=== PATIENT | male | born 1975 | race Caucasian/White ===

== ENCOUNTER 2021-12-20 10:53 | Inpatient (IN) | payer BC, OTHER ==
[2021-12-20 11:41] LABS: Basophils # (A) 0.1 k/uL (0-0.2); Basophils % (A) 1 %; Eosinophils # (A) 0.2 k/uL (0-0.7); Eosinophils % (A) 2 %; HCT 49.3 % (39.0-53.0); HGB 16.3 gm/dL (13.0-17.5); Lymphocytes # (A) 1.1 k/uL (1.0-4.8); Lymphocytes % (A) 10 %; MCH 29.8 pg (25.0-35.0); MCHC 33.1 g/dL (31.0-37.0); Mean Platelet Volume 8.3; Monocytes # (A) 0.8 k/uL (0-1.0); Monocytes % (A) 7 %; Neutrophils # (A) 8.8 k/uL (1.3-7.7); Neutrophils % (A) 79 %; Platelet Count 246 k/uL (150-450); RBC 5.48 m/uL (4.30-5.90); RDW 14.2 % (11.5-15.5)
--- NOTE | 2021-12-20 11:50 | XR ---
EXAMINATION TYPE: XR chest 2V DATE OF EXAM: 12/20/2021 COMPARISON: NONE HISTORY: Chest pain TECHNIQUE: Frontal and lateral views of the chest are obtained. FINDINGS: Mild increased density right medial lung base could reflect developing infiltrate or atelectasis. Cor relate clinically. No evidence for pneumothorax. No pleural effusion. The cardiac silhouette size is within normal limits. The osseous structures are grossly intact. IMPRESSION: 1. Mild increased density right medial lung base could reflect developing infiltrate or atelectasis. Correlate clinically.
[2021-12-20 11:51] LABS: ALT 86 U/L (4-49); AST 150 U/L (17-59); African American GFR (CKD) >90 (>60 ml/min/1.73 sqM); Albumin 4.6 g/dL (3.5-5.0); Alkaline Phosphatase 102 U/L (38-126); Anion Gap 8 mmol/L; Blood Urea Nitrogen 11 mg/dL (9-20); Calcium 9.3 mg/dL (8.4-10.2); Carbon Dioxide 23 mmol/L (22-30); Chloride 105 mmol/L (98-107); Glucose 121 mg/dL (74-99); Non-African American GFR(CKD) >90 (>60 ml/min/1.73 sqM); Prothrombin Time 10.8 sec (9.0-12.0); Sodium 136 mmol/L (137-145); Total Bilirubin 1.3 mg/dL (0.2-1.3); Total Protein 8.2 g/dL (6.3-8.2)
[2021-12-20] MEDS ORDERED: ASPIRIN 81 MG PO STA (11:57)
--- NOTE | 2021-12-20 12:02 | ED ---
General Adult HPI - General Chief complaint: Chest Pain Stated complaint: Chest pain Time Seen by Provider: 12/20/21 11:08 Source: patient Mode of arrival: ambulatory Limitations: no limitations - History of Present Illness Initial comments: Dictation was produced using [employer] dictation software. please excuse any grammatical, word or spelling errors. Chief Complaint: 46 yo male presents to the emergency department for chest pressure History of Present Illness: Is a 46-year-old male presents to the emergency department for chest pressure. Patient has past medical history of diabetes, hypertension. He has extensive family history of heart attacks. Patient states this morning he started having substernal chest pressure that would have undulating waves of sharpness and pressure. Patient reports that sharpness has gone away now he just feels some substernal pressure. States it radiates to the left shoulder associated with some diaphoresis and shortness of breath. Patient has any dyspnea at the bedside. He states that he does have some mild symptoms. Just prior to coming to the emergency department he took one of his family members nitroglycerin which improved his symptoms. Patient reports that his extensive family history of heart attacks. The ROS documented in this emergency department record has been reviewed and confirmed by me. Those systems with pertinent positive or negative responses have been documented in the HPI. All other systems are other negative and/or noncontributory. PHYSICAL EXAM: General Impression: Alert and oriented x3, not in acute distress HEENT: Normocephalic atraumatic, extra-ocular movements intact, pupils equal and reactive to light bilaterally, mucous membranes moist. Cardiovascular: Heart regular rate and rhythm Chest: Able to complete full sentences, no retractions, no tachypnea Abdomen: abdomen soft, non-tender, non-distended, no organomegaly Musculoskeletal: Pulses present and equal in all extremities, no peripheral edema Motor: no focal deficits noted Neurological: CN II-XII grossly intact, no focal motor or sensory deficits noted Skin: Intact with no visualized rashes Psych: Normal affect and mood ED course: 46 well-appearing male presents emergency department for symptoms concerning for acute coronary syndrome. Vital signs upon arrival are within acceptable limits. EKG does not show any signs of ischemia or infarction. Lab evaluation obtained. CBC unremarkable. Coag panel is unremarkable. Metabolic panel is within acceptable limits. Patient is slight elevation in his renal markers with a secondary to alcohol intake. Troponin is elevated troponin 110. Patient had an episode of rib pain. Repeat EKG was performed that did not show any hemodynamic changes. Patient is otherwise relatively asymptomatic. Patient be admitted to [facility]. Case was discussed in detail with Dr. Meade who requests that echocardiogram be ordered. Started heparin. Clinical presentation consistent with non-ST segment elevation PR. Patient also given aspirin and Nitropaste. EKG interpretation: Ventricular rate anterior, sinus rhythm,. 96, QRS 114, QTc 425. No NH prolongation, no QTC prolongation, no ST or T-wave changes noted. Overall, this EKG is unremarkable - Related Data Home Medications Medication Instructions Recorded Confirmed lisinopriL [Zestril] 10 mg PO DAILY 12/20/21 12/20/21 Allergies Allergy/AdvReac Type Severity Reaction Status Date / Time bee venom protein (honey bee) Allergy Swelling Verified 12/20/21 12:44 Tetanus Vaccines and Toxoid Allergy Anaphylaxis Verified 12/20/21 12:44 Review of Systems ROS Statement: Those systems with pertinent positive or pertinent negative responses have been documented in the HPI. ROS Other: All systems not noted in ROS Statement are negative. Past Medical History Past Medical History: Diabetes Mellitus, Hypertension, Myocardial Infarction ([place]) Additional Past Medical History / Comment(s): TIA History of Any Multi-Drug Resistant Organisms: None Reported Past Surgical History: Appendectomy, Cholecystectomy Past Psychological History: Anxiety Smoking Status: Current every day smoker Past Alcohol Use History: Heavy Past Drug Use History: Marijuana General Exam Limitations: no limitations Course Vital Signs 12/20/21 12/20/21 12/20/21 11:00 11:57 13:10 Temperature 98.6 F 97.8 F Pulse Rate 100 78 95 Respiratory 16 15 20 Rate Blood Pressure 139/82 128/92 129/87 O2 Sat by Pulse 98 97 97 Oximetry Medical Decision Making - Lab Data Result diagrams: 12/20/21 11:34 12/20/21 12:12 Lab Results 12/20/21 12/20/21 12/20/21 Range/Units 11:34 11:34 11:34 WBC 11.0 H (3.8-10.6) k/uL RBC 5.48 (4.30-5.90) m/uL Hgb 16.3 (13.0-17.5) gm/dL Hct 49.3 (39.0-53.0) % MCV 90.0 (80.0-100.0) fL MCH 29.8 (25.0-35.0) pg MCHC 33.1 (31.0-37.0) g/dL RDW 14.2 (11.5-15.5) % Plt Count 246 (150-450) k/uL MPV 8.3 Neutrophils % 79 % Lymphocytes % 10 % Monocytes % 7 % Eosinophils % 2 % Basophils % 1 % Neutrophils # 8.8 H (1.3-7.7) k/uL Lymphocytes # 1.1 (1.0-4.8) k/uL Monocytes # 0.8 (0-1.0) k/uL Eosinophils # 0.2 (0-0.7) k/uL Basophils # 0.1 (0-0.2) k/uL PT 10.8 (9.0-12.0) sec INR 1.0 (<1.2) Sodium 136 L (137-145) mmol/L Potassium 6.0 H (3.5-5.1) mmol/L Chloride 105 (98-107) mmol/L Carbon Dioxide 23 (22-30) mmol/L Anion Gap 8 mmol/L BUN 11 (9-20) mg/dL Creatinine 0.63 L (0.66-1.25) mg/dL Est GFR (CKD-EPI)AfAm >90 (>60 ml/min/1.73 sqM) Est GFR (CKD-EPI)NonAf >90 (>60 ml/min/1.73 sqM) Glucose 121 H (74-99) mg/dL Calcium 9.3 (8.4-10.2) mg/dL Magnesium (1.6-2.3) mg/dL Total Bilirubin 1.3 (0.2-1.3) mg/dL AST 150 H (17-59) U/L ALT 86 H (4-49) U/L Alkaline Phosphatase 102 (38-126) U/L Troponin I (0.000-0.034) ng/mL Total Protein 8.2 (6.3-8.2) g/dL Albumin 4.6 (3.5-5.0) g/dL 12/20/21 12/20/21 Range/Units 11:34 12:12 WBC (3.8-10.6) k/uL RBC (4.30-5.90) m/uL Hgb (13.0-17.5) gm/dL Hct (39.0-53.0) % MCV (80.0-100.0) fL MCH (25.0-35.0) pg MCHC (31.0-37.0) g/dL RDW (11.5-15.5) % Plt Count (150-450) k/uL MPV Neutrophils % % Lymphocytes % % Monocytes % % Eosinophils % % Basophils % % Neutrophils # (1.3-7.7) k/uL Lymphocytes # (1.0-4.8) k/uL Monocytes # (0-1.0) k/uL Eosinophils # (0-0.7) k/uL Basophils # (0-0.2) k/uL PT (9.0-12.0) sec INR (<1.2) Sodium 138 (137-145) mmol/L Potassium 4.5 (3.5-5.1) mmol/L Chloride 105 (98-107) mmol/L Carbon Dioxide 25 (22-30) mmol/L Anion Gap 8 mmol/L BUN 11 (9-20) mg/dL Creatinine 0.66 (0.66-1.25) mg/dL Est GFR (CKD-EPI)AfAm >90 (>60 ml/min/1.73 sqM) Est GFR (CKD-EPI)NonAf >90 (>60 ml/min/1.73 sqM) Glucose 122 H (74-99) mg/dL Calcium 9.5 (8.4-10.2) mg/dL Magnesium 2.0 (1.6-2.3) mg/dL Total Bilirubin 0.5 (0.2-1.3) mg/dL AST 183 H (17-59) U/L ALT 88 H (4-49) U/L Alkaline Phosphatase 103 (38-126) U/L Troponin I 3.110 H* (0.000-0.034) ng/mL Total Protein 7.4 (6.3-8.2) g/dL Albumin 4.3 (3.5-5.0) g/dL Disposition Clinical Impression: NSTEMI (non-ST elevated myocardial infarction) Disposition: ADMITTED IP TO THIS [facility] Condition: Serious Decision Time: 13:31
[2021-12-20] MEDS ORDERED: HEPARIN SODIUM 1,000 UN/ML (10ML VL) IV ONE (12:10)
[2021-12-20] MEDS ORDERED: NITROGLYCERIN SL TABS 0.4 MG TAB SUBLINGUAL STA (12:11)
[2021-12-20] MEDS ORDERED: HEPARIN SOD,PORK IN 0.45% NACL 25,000 UNIT in 0.45% NACL 1 250ML.BAG IV SCH (12:15)
[2021-12-20 12:32] LABS: ALT 88 U/L (4-49); AST 183 U/L (17-59); African American GFR (CKD) >90 (>60 ml/min/1.73 sqM); Albumin 4.3 g/dL (3.5-5.0); Alkaline Phosphatase 103 U/L (38-126); Anion Gap 8 mmol/L; Blood Urea Nitrogen 11 mg/dL (9-20); Calcium 9.5 mg/dL (8.4-10.2); Carbon Dioxide 25 mmol/L (22-30); Chloride 105 mmol/L (98-107); Glucose 122 mg/dL (74-99); Non-African American GFR(CKD) >90 (>60 ml/min/1.73 sqM); Potassium 4.5 mmol/L (3.5-5.1); Sodium 138 mmol/L (137-145); Total Bilirubin 0.5 mg/dL (0.2-1.3); Total Protein 7.4 g/dL (6.3-8.2)
[2021-12-20] MEDS ORDERED: NITROGLYCERIN SL TABS 0.4 MG TAB SUBLINGUAL PRN (12:59)
[2021-12-20] MEDS ORDERED: NITROGLYCERIN 0.2MG/HR PATCH TRANSDERM STA (13:28)
[2021-12-20] MEDS ORDERED: NALOXONE 0.4 MG/ML 1 ML VIAL IV PRN (14:42)
--- NOTE | 2021-12-20 14:46 | P.HPIM ---
History of Present Illness H&P Date: 12/20/21 Chief Complaint: chest pressure 46-year-old male with hx of HTN not compliant with meds who presents to the emergency department for chest pressure. He drank alot last night and smoked marijuana, woke up this am felt fine initially but later he started having sever e chest pressure radiating to the back and the left shoulder associated with some diaphoresis and shortness of breath, nausea and vomiting. Just prior to coming to the emergency department he took one of his family members nitroglycerin which improved his symptoms. Patient reports that his extensive family history of heart attacks. Mother had her first [place] in her late 30s and father had CAD as well but he was cocaine user. Patient states that he lost 40 pounds over the past 4 months, and that he has been trying to live a healthy lifestyle. However he smokes 2 PPD, daily marijuana and drinks on weekends regularly. In the ER his vitals ok, trops was up to 3. CXR mild medial lung base density that could be atelectasis or infiltrates.. He was admitted to medicine with cardiology on consult. Review of Systems Complete review of system was performed, pertinent positives per HPI otherwise negative. Past Medical History Past Medical History: Diabetes Mellitus, Hypertension, Myocardial Infarction ([place]) Additional Past Medical History / Comment(s): TIA Last Myocardial Infarction Date:: n/a History of Any Multi-Drug Resistant Organisms: None Reported Past Surgical History: Appendectomy, Cholecystectomy Past Psychological History: Anxiety Smoking Status: Current every day smoker Past Alcohol Use History: Heavy Past Drug Use History: Marijuana Medications and Allergies Home Medications Medication Instructions Recorded Confirmed Type lisinopriL [Zestril] 10 mg PO DAILY 12/20/21 12/20/21 History Allergies Allergy/AdvReac Type Severity Reaction Status Date / Time bee venom protein (honey bee) Allergy Swelling Verified 12/20/21 12:44 Tetanus Vaccines and Toxoid Allergy Anaphylaxis Verified 12/20/21 12:44 Physical Exam Vitals: Vital Signs Temp Pulse Pulse Resp BP BP Pulse Ox 12/20/21 13:56 98.2 F 90 18 126/85 98 12/20/21 13:14 97.8 F 90 20 130/87 12/20/21 13:10 97.8 F 95 20 129/87 97 12/20/21 11:57 78 15 128/92 97 12/20/21 11:00 98.6 F 100 16 139/82 98 Intake and Output 12/19/21 12/20/21 12/20/21 22:59 06:59 14:59 Other: Weight 126.099 kg Constitutional: No acute distress, conversant, pleasant Eyes:Anicteric sclerae, moist conjunctiva, no lid-lag, PERRLA, ENMT: Oropharynx clear, no erythema, exudates Neck: Supple, FROM, no masses, or JVD, No carotid bruits, No thyromegaly Lungs: Clear to auscultation, Clear to percussion, Normal respiratory effort, no accessory muscle use Cardiovascular: Heart regular in rate and rhythm, No murmurs, gallops, or rubs, No peripheral edema Abdominal: Soft, Nontender, no guarding, rebound or rigidity, Normoactive bowel sounds, No hepatomegaly, No splenomegaly, No palpable mass Skin: Normal temperature, tone, texture, turgor, no induration, No subcutaneous nodules, No rash, lesions, No ulcers Extremities: No digital cyanosis, No clubbing, Pedal pulses intact and symmetrical, Radial pulses intact and symmetrical, No calf tenderness Psychiatric: Alert and oriented to person, place and time, appropriate affect, intact judgement Neuro: Muscles Strength 5/5 in all 4 extremities, Sensation to light touch grossly present throughout, Cranial nerves II-XII grossly intact, no focal sensory deficits Results CBC & Chem 7: 12/20/21 11:34 12/20/21 12:12 Labs: Abnormal Lab Results - Last 24 Hours (Table) 12/20/21 12/20/21 12/20/21 Range/Units 11:34 11:34 11:34 WBC 11.0 H (3.8-10.6) k/uL Neutrophils # 8.8 H (1.3-7.7) k/uL Sodium 136 L (137-145) mmol/L Potassium 6.0 H (3.5-5.1) mmol/L Creatinine 0.63 L (0.66-1.25) mg/dL Glucose 121 H (74-99) mg/dL AST 150 H (17-59) U/L ALT 86 H (4-49) U/L Troponin I 3.110 H* (0.000-0.034) ng/mL 06/25/22 Range/Units 12:12 WBC (3.8-10.6) k/uL Neutrophils # (1.3-7.7) k/uL Sodium (137-145) mmol/L Potassium (3.5-5.1) mmol/L Creatinine (0.66-1.25) mg/dL Glucose 122 H (74-99) mg/dL AST 183 H (17-59) U/L ALT 88 H (4-49) U/L Troponin I (0.000-0.034) ng/mL Assessment and Plan Plan: NSTEMI Heparin gtt. Aspirin 325mg given Start asa 81mg daily, metoprolol, statin Consult cardio Tele Check lipid panel Hyperglycemia Check a1c Smoking, etoh and marijuana abuse He was told to quit Nicotine patch Obesity Outpatient weight loss program DVT prophylaxis On heparin Admit to inpatient expected length of stay more than 2 midnights.
--- NOTE | 2021-12-20 15:39 | CA ---
Transthoracic Echo Report Name: Gonzalez Ramachandran Age: 46 Gender: M : 1975 Exam Date: 12/20/2021 13:20 Exam Location: [place] [facility] Ht (in): 71 Wt (lb): 278 Ordering Physician: Eben Morrissey DO Attending/Referring Phys: [employer]ooter Pat Murphy RDCS Procedure CPT: Indications: nstemi Cardiac Hx: Fm HX, HTN Technical Quality: Good Contrast 1: Total Dose (mL): Contrast 2: Total Dose (mL): MEASUREMENTS (Male / Female) Normal Values 2D ECHO LV Diastolic Diameter PLAX 3.8 cm 4.2 - 5.9 / 3.9 - 5.3 cm LV Systolic Diameter PLAX 2.9 cm IVS Diastolic Thickness 1.5 cm 0.6 - 1.0 / 0.6 - 0.9 cm LVPW Diastolic Thickness 1.7 cm 0.6 - 1.0 / 0.6 - 0.9 cm LV Relative Wall Thickness 0.8 RV Internal Dim ED PLAX 2.4 cm M-MODE Aortic Root Diameter MM 3.4 cm LA Systolic Diameter MM 3.3 cm LA Ao Ratio MM 1.0 MV E Point Septal Separation 0.9 cm AV Cusp Separation MM 2.0 cm DOPPLER AV Peak Velocity 110.3 cm/s AV Peak Gradient 4.9 mmHg MV Area PHT 5.4 cm??? MR Peak Velocity 178.4 cm/s MR Peak Gradient 12.7 mmHg Mitral E Point Velocity 90.2 cm/s Mitral A Point Velocity 64.3 cm/s Mitral E to A Ratio 1.4 MV Deceleration Time 140.0 ms TR Peak Velocity 87.6 cm/s TR Peak Gradient 3.1 mmHg Right Ventricular Systolic Press 7.9 mmHg FINDINGS Left Ventricle Moderate concentric LVH. Left ventricular ejection fraction is estimated at 50- 55 %. Left ventricular cavity size normal. Right Ventricle The right ventricle is normal in size and function. Right Atrium The right atrium is normal in size. Left Atrium The left atrium is normal in size. Mitral Valve Structurally normal mitral valve without significant stenosis or prolapse. There is trace mitral regurgitation. Aortic Valve Structurally normal aortic valve without significant sclerosis or stenosis. There is no aortic regurgitation. Tricuspid Valve Structurally normal tricuspid valve without significant stenosis. Pulmonary artery systolic pressure is normal. Trace tricuspid regurgitation. Pulmonic Valve Structurally normal pulmonic valve without significant stenosis. There is no pulmonic regurgitation. Pericardium Normal pericardium without effusion. Aorta Normal aortic root dimension. CONCLUSIONS #1. Moderate concentric left ventricular hypertrophy. #2. Preserved LV function. #3. Trace mitral and tricuspid regurgitation Previewed by: Dr. Amy Meade MD (Electronically Signed) Final Date: 20 December 2021 15:38
[2021-12-20] MEDS: ATORVASTATIN 40 MG TAB PO SCH (16:17)
[2021-12-20] MEDS: METOPROLOL TARTRATE 25 MG TAB PO SCH ×3 (16:17→23:56)
[2021-12-20] MEDS: NICOTINE 21MG/24HR PATCH TRANSDERM SCH (19:30)
[2021-12-20 19:33] VITALS: RESP 12
[2021-12-20] MEDS: HEPARIN SODIUM 1,000 UN/ML (10ML VL) IV PRN (21:14)
[2021-12-21] MEDS: HEPARIN SODIUM 1,000 UN/ML (10ML VL) IV PRN (01:41)
[2021-12-21 08:01] LABS: Basophils # (A) 0.1 k/uL (0-0.2); Basophils % (A) 1 %; Eosinophils # (A) 0.3 k/uL (0-0.7); Eosinophils % (A) 2 %; Lymphocytes # (A) 2.5 k/uL (1.0-4.8); Lymphocytes % (A) 18 %; MCH 29.6 pg (25.0-35.0); MCHC 32.6 g/dL (31.0-37.0); MCV 90.7 fL (80.0-100.0); Mean Platelet Volume 8.4; Monocytes % (A) 7 %; Neutrophils # (A) 10.3 k/uL (1.3-7.7); Neutrophils % (A) 72 %; Platelet Count 241 k/uL (150-450); RBC 5.07 m/uL (4.30-5.90); RDW 14.3 % (11.5-15.5); WBC 14.2 k/uL (3.8-10.6)
[2021-12-21 08:12] LABS: ALT 113 U/L (4-49); AST 292 U/L (17-59); African American GFR (CKD) >90 (>60 ml/min/1.73 sqM); Albumin 3.9 g/dL (3.5-5.0); Alkaline Phosphatase 103 U/L (38-126); Anion Gap 7 mmol/L; Blood Urea Nitrogen 11 mg/dL (9-20); Calcium 8.8 mg/dL (8.4-10.2); Carbon Dioxide 24 mmol/L (22-30); Chloride 105 mmol/L (98-107); Glucose 118 mg/dL (74-99); Magnesium 1.9 mg/dL (1.6-2.3); Non-African American GFR(CKD) >90 (>60 ml/min/1.73 sqM); Phosphorus 3.3 mg/dL (2.5-4.5); Potassium 4.2 mmol/L (3.5-5.1); Sodium 136 mmol/L (137-145); Total Protein 6.8 g/dL (6.3-8.2)
[2021-12-21] MEDS: ATORVASTATIN 40 MG TAB PO SCH (08:13)
[2021-12-21] MEDS: NICOTINE 21MG/24HR PATCH TRANSDERM SCH (08:13)
[2021-12-21] MEDS: METOPROLOL TARTRATE 25 MG TAB PO SCH (08:13)
--- NOTE | 2021-12-21 08:37 | P.CRDCN ---
History of Present Illness Consult date: 12/21/21 History of present illness: This is a 46-year-old gentleman with history of hypertension and borderline diabetes and strong family history of ischemic heart disease was drinking the night before admission. Around 3:00 in the morning patient started having some tight feeling around the throat and not feeling well. Patient threw up and felt better and was able to go to sleep, woke up in the morning around 8:00 yesterday feeling good, but soon after he started having some nausea, sweating and discomfort in the throat area and also her abdomen. Patient went to see his mom around 9:00 and apparently his blood pressure was high in the range of 180 systolic. Patient's was treated with sublingual nitroglycerin by his mother and apparently his blood pressure came down to 140/80 and patient felt much better. However, patient came to the emergency room for further evaluation. He claims that he smokes 2 packs per day and uses marijuana daily and drinks on weekends. His EKG did not reveal any acute changes of ischemia and repeat EKG also did not show any changes. Echocardiogram did not show any different wall motion abnormalities. However, troponin went up to 90+ from about 3+. Patient is advised to have cardiac cath placed for definitive diagnosis. Patient was explained the risks and benefits of the procedure which she fully understood and accepted Review of Systems As per the chart. Patient is having intermittent chest discomfort. Patient was also having some shortness of breath. No headache or visual disturbances. No diarrhea. No dysuria Past Medical History Past Medical History: Diabetes Mellitus, Hypertension, Myocardial Infarction ([place]) Additional Past Medical History / Comment(s): TIA Last Myocardial Infarction Date:: n/a History of Any Multi-Drug Resistant Organisms: None Reported Past Surgical History: Appendectomy, Cholecystectomy Past Psychological History: Anxiety Smoking Status: Current every day smoker Past Alcohol Use History: Heavy Past Drug Use History: Marijuana Medications and Allergies Home Medications Medication Instructions Recorded Confirmed Type lisinopriL [Zestril] 10 mg PO DAILY 12/20/21 12/20/21 History Allergies Allergy/AdvReac Type Severity Reaction Status Date / Time bee venom protein (honey bee) Allergy Swelling Verified 12/20/21 12:44 Tetanus Vaccines and Toxoid Allergy Anaphylaxis Verified 12/20/21 12:44 Physical Exam Vitals: Vital Signs Temp Pulse Pulse Resp BP BP Pulse Ox 12/21/21 08:00 97.5 F L 77 12 122/85 96 12/21/21 04:00 97.9 F 66 12 110/71 96 12/20/21 23:53 98.1 F 76 12 145/79 96 12/20/21 19:33 97.7 F 76 12 137/82 98 12/20/21 15:50 97.5 F L 88 20 129/84 12/20/21 14:00 90 12/20/21 13:56 98.2 F 90 18 126/85 98 12/20/21 13:14 97.8 F 90 20 130/87 12/20/21 13:10 97.8 F 95 20 129/87 97 12/20/21 11:57 78 15 128/92 97 12/20/21 11:00 98.6 F 100 16 139/82 98 Intake and Output 12/20/21 12/21/21 12/21/21 22:59 06:59 14:59 Intake Total 82.167 59.956 Balance 82.167 59.956 Intake: Intake, IV Titration 82.167 59.956 Amount Heparin Sod,Pork in 0.45% 82.167 59.956 NaCl 25,000 unit In 0.45 % NaCl 1 250ml.bag @ 7.93 UNITS/KG/HR 10 mls/hr IV .Q24H [facility] Rx#:[id number] Other: Voiding Method Toilet Toilet Toilet Urinal Urinal Urinal # Voids 2 3 GENERAL EXAM: Patient is alert and oriented and doesn't appear to be in any acute distress HEENT: Normocephalic. Normal reaction of pupils, equal size, normal range of extraocular motion. No erythema or exudates in the throat. NECK: No masses, no nuchal rigidity. CHEST: No chest wall deformity. LUNGS: Equal air entry with no crackles or wheeze. HEART: S1 and S2 normal with no audible mumurs or gallops. Regular rhythm, femorals equal on both sides.. ABDOMEN: No hepatosplenomegaly, normal bowel sounds, no guarding or rigidity. SKIN: No rashes CENTRAL NERVOUS SYSTEM: No focal deficits. EXTREMITIES: No cyanosis, clubbing or edema. Results 12/21/21 07:18 12/21/21 07:18 Cardiac Enzymes 12/20/21 12/20/2122 Range/Units 11:34 11:34 12:12 AST 150 H 183 H (17-59) U/L Troponin I 3.110 H* (0.000-0.034) ng/mL 12/20/21 12/20/21 12/21/21 Range/Units 14:48 18:47 07:18 AST 292 H (17-59) U/L Troponin I 49.000 H* 98.600 H* (0.000-0.034) ng/mL Coagulation 12/20/21 12/20/21 12/21/21 Range/Units 11:34 18:47 00:16 PT 10.8 (9.0-12.0) sec APTT 28.7 38.6 H (22.0-30.0) sec 12/21/21 Range/Units 07:18 PT (9.0-12.0) sec APTT 40.0 H (22.0-30.0) sec CBC 12/20/21 12/21/21 Range/Units 11:34 07:18 WBC 11.0 H 14.2 H (3.8-10.6) k/uL RBC 5.48 5.07 (4.30-5.90) m/uL Hgb 16.3 15.0 (13.0-17.5) gm/dL Hct 49.3 46.0 (39.0-53.0) % Plt Count 246 241 (150-450) k/uL Comprehensive Metabolic Panel 12/20/21 12/20/21 12/21/21 Range/Units 11:34 12:12 07:18 Sodium 136 L 138 136 L (137-145) mmol/L Potassium 6.0 H 4.5 4.2 (3.5-5.1) mmol/L Chloride 105 105 105 (98-107) mmol/L Carbon Dioxide 23 25 24 (22-30) mmol/L BUN 11 11 11 (9-20) mg/dL Creatinine 0.63 L 0.66 0.62 L (0.66-1.25) mg/dL Glucose 121 H 122 H 118 H (74-99) mg/dL Calcium 9.3 9.5 8.8 (8.4-10.2) mg/dL AST 150 H 183 H 292 H (17-59) U/L ALT 86 H 88 H 113 H (4-49) U/L Alkaline Phosphatase 102 103 103 (38-126) U/L Total Protein 8.2 7.4 6.8 (6.3-8.2) g/dL Albumin 4.6 4.3 3.9 (3.5-5.0) g/dL Current Medications Generic Name Dose Route Start Last Admin Trade Name Freq PRN Reason Stop Dose Admin Aspirin 325 mg 12/21/21 09:00 12/21/21 08:13 Aspirin 325 Mg Tab PO 325 mg DAILY [facility]UD[facility] Administration Atorvastatin Calcium 40 mg 12/20/21 14:45 12/21/21 08:13 Atorvastatin 40 Mg Tab PO 40 mg DAILY KLAUDIA Administration Heparin Sodium (Porcine) 0 unit 12/20/21 12:10 12/21/21 01:41 Heparin Sodium 1,000 Un/Ml (10ml Vl) IV 3,150 unit PER PROTOCOL PRN Administration Low PTT Protocol Heparin Sodium/Sodium Chloride 250 mls @ 10 mls/hr 12/20/21 12:15 12/21/21 01:40 25,000 unit/ Sodium Chloride IV 12.9 units/kg/hr .Q24H KLAUDIA 16.267 mls/hr Titration Protocol 7.93 UNITS/KG/HR Metoprolol Tartrate 25 mg 12/20/21 15:01 12/21/21 08:13 Metoprolol Tartrate 25 Mg Tab PO 25 mg BID KLAUDIA Administration Naloxone HCl 0.2 mg 12/20/21 14:42 Naloxone 0.4 Mg/Ml 1 Ml Vial IV Q2M PRN Opioid Reversal Nicotine 1 patch 12/20/21 19:23 12/21/21 08:13 Nicotine 21mg/24hr Patch TRANSDERM 1 patch DAILY KLAUDIA Administration Nitroglycerin 0.4 mg 12/20/21 12:59 Nitroglycerin Sl Tabs 0.4 Mg Tab SUBLINGUAL Q5M PRN Chest Pain Intake and Output 12/20/21 12/21/21 12/21/21 22:59 06:59 14:59 Intake Total 82.167 59.956 Balance 82.167 59.956 Intake: Intake, IV Titration 82.167 59.956 Amount Heparin Sod,Pork in 0.45% 82.167 59.956 NaCl 25,000 unit In 0.45 % NaCl 1 250ml.bag @ 7.93 UNITS/KG/HR 10 mls/hr IV .Q24H [facility] Rx#:[id number] Other: Voiding Method Toilet Toilet Toilet Urinal Urinal Urinal # Voids 2 3 12/21/21 07:18 12/21/21 07:18 EKG Interpretations (text) Sinus rhythm without any acute changes Assessment and Plan (1) NSTEMI (non-ST elevated myocardial infarction) Current Visit: Yes Status: Acute Code(s): I21.4 - NON-ST ELEVATION (NSTEMI) MYOCARDIAL INFARCTION SNOMED Code(s): 15790141 (2) Essential hypertension Current Visit: Yes Status: Acute Code(s): I10 - ESSENTIAL (PRIMARY) HYPERTENSION SNOMED Code(s): 78225483 (3) Borderline diabetes Current Visit: Yes Status: Acute Code(s): R73.03 - PREDIABETES SNOMED Code(s): 572449867 (4) Hypercholesterolemia Current Visit: Yes Status: Acute Code(s): E78.00 - PURE HYPERCHOLESTEROLEMIA, UNSPECIFIED SNOMED Code(s): 90711105 (5) Alcohol use Current Visit: Yes Status: Acute Code(s): Z72.89 - OTHER PROBLEMS RELATED TO LIFESTYLE SNOMED Code(s): 629430 (6) Marijuana use Current Visit: Yes Status: Acute Code(s): F12.90 - CANNABIS USE, UNSPECIFIED, UNCOMPLICATED SNOMED Code(s): 701359322 Plan: We'll continue patient on aspirin, heparin, beta blockers and nitrates. Proceed with cardiac cath for definitive diagnosis. We'll also start lipid-lowering agent. Further recommendations depend upon the clinical course and findings on the cath
[2021-12-21] MEDS ORDERED: SODIUM CHLORIDE 0.9% 1,000 ML IV ONE (08:45)
[2021-12-21] MEDS ORDERED: VERAPAMIL 2.5 MG/ML 2 ML AMP ONE (08:57)
[2021-12-21] MEDS ORDERED: ASPIRIN 325 MG TAB PO SCH (09:00)
[2021-12-21] MEDS ORDERED: NICOTINE 21MG/24HR PATCH TRANSDERM SCH (09:00)
[2021-12-21] MEDS ORDERED: LIDOCAINE 1% INJ 10MG/ML (5 ML VIAL-PF) SQ ONE (09:10)
[2021-12-21] MEDS ORDERED: MIDAZOLAM 2 MG/2 ML VIAL IV ONE (09:11)
[2021-12-21] MEDS ORDERED: VERAPAMIL SYRINGE (5 MG/10 ML) INTRAARTER ONE (09:11)
[2021-12-21] MEDS ORDERED: HYDROmorphone 1 MG/ML 1 ML SYRINGE ONE (09:12)
[2021-12-21] MEDS ORDERED: HYDROmorphone 1 MG/ML 1 ML SYRINGE IVP ONE (09:14)
[2021-12-21] MEDS ORDERED: HEPARIN SODIUM 1,000 UN/ML (10ML VL) ONE (09:18)
[2021-12-21] MEDS: HEPARIN SODIUM 1,000 UN/ML (10ML VL) IV ONE ×2 (09:18→09:31)
[2021-12-21] MEDS ORDERED: TICAGRELOR 90 MG TAB ONE (09:40)
[2021-12-21] MEDS ORDERED: TICAGRELOR 90 MG TAB PO ONE (09:41)
[2021-12-21] MEDS ORDERED: IOPAMIDOL-370 125ML BTL INJ ONE ×2 (09:45)
[2021-12-21] MEDS ORDERED: MAG HYDROX/AL HYDROX/SIMETH 30 ML CUP PO PRN (10:09)
[2021-12-21] MEDS ORDERED: NITROGLYCERIN SL TABS 0.4 MG TAB SUBLINGUAL PRN (10:09)
[2021-12-21] MEDS ORDERED: ATROPINE SULFATE 0.1 MG/ML 10ML SYRINGE IV PRN (10:09)
[2021-12-21] MEDS ORDERED: ZOLPIDEM 5 MG TAB PO PRN (10:09)
[2021-12-21] MEDS ORDERED: RX INFO: IV CONTRAST WAS GIVEN 1 EACH MISC MISCELLANE PRN (10:09)
[2021-12-21] MEDS ORDERED: SODIUM CHLORIDE 0.9% 1,000 ML in EMPTY BAG 1 BAG IV SCH (10:15)
--- NOTE | 2021-12-21 10:20 | P.PCN ---
Date of Procedure: 12/21/21 Operative Findings: CARDIAC CATHETERIZATION AND PERCUTANEOUS CORONARY INTERVENTION PERFORMING PHYSICIAN: Tanner Foley MD, [facility] PROCEDURE PERFORMED: 1. Selective right and left coronary angiogram 2. Left heart catheterization 3. Successful stenting of third OM using 3.25 x 23 Xience RENUKA which with an excellent angiographic results 4. Successful stenting of the proximal LCx using 3.5 x 28 mm Xience RENUKA with an excellent angiographic results INDICATION: This is a 46-year-old gentleman with a borderline diabetes and hypertension and dyslipidemia and obesity and significant history of smoking cigarettes as well as marijuana and also alcohol use was admitted to the hospital with shortness of breath and he was ruled in for acute coronary event. The troponin was elevated. The EKG did not show any significant ST or T-wave abnormalities. Because his troponin was trending up heart catheterization was advised COMPLICATION: None APPROACH: Right radial art LEVEL OF SEDATION: Moderate with the sedation time off 38 minutes PROCEDURE DESCRIPTION: After obtaining an informed consent the patient was brought to the cardiac forestry laborer. The right radial artery was cannulated using puncture technique, the micronodular passed easily then I placed a 6-Rwandan sheath. I gave the patient 2 mg of verapamil intra-arterial and 5000 use of heparin intravenous. Selective right and left coronary angiogram performed using JR4 and JL 3.5 catheters. Left heart catheterization was performed using 6-Rwandan pigtail catheter. After that I did intervene on the LCx coronary artery. The procedure was completed without any complications SELECTIVE CORONARY ANGIOGRAM: The right coronary artery: Is a large caliber vessel and probably a dominant vessel. The RCA is chronically occluded a long segment extends from the proximal all the way to distal portion. It fills by ipsilateral collateral. I had heartburn seeing contralateral collateral. Left main: Is angiographically normal. Bifurcates into LCx and LAD The left circumflex: Is a large-caliber vessel is a codominant vessel. The proximal left circumflex has a long ulcerated and tubular lesion appeared to be in the range of 90-95%. The proximal all 6 gives rises into the first and second obtuse marginal branches both appear to have mild disease only. Then distally the LCx gives rises into a third OM branch which has another ulcerated lesion appeared to be in the range of 80-90%. The circumflex distally bifurcates into PDA and PLV branches both appear to have mild to moderate diffuse disease The left anterior descending artery: Is a large caliber vessel. Its angiographically normal mid gives rises into a large diagonal branch which appeared to be angiographically normal. Otherwise the LAD in the proximal and mid and distal portions appeared to be angiographically normal. HEMODYNAMICS: The LVEDP was 26 mmHg was no significant gradient across aortic valve PCI OF THE LCx: Anticoagulation was initiated using heparin with continuous ACT monitoring. At the beginning the patient was given a total of 5000 use of heparin IV and during the procedure he was given additional 5000 of heparin IV as well. ACT monitoring was performed. Subsequently I did engage the left main using an EBU 3.5 guide. I did to wire the left circumflex using a whisper wire. The wire was positioned in the third OM branch of the LCx. Predilatation was performed using 3.0 x 15 mm balloon were I dilated the third OM as well as proximal LCx. Subsequently for the third OM I deployed 3.25 x 23 mm stent where the stent was positioned under fluoroscopy guidance and deployed under its nominal pressure. For the proximal LCx I deployed 3.5 x 28 mm stent where the stent again was positioned under fluoroscopy guidance and deployed under its nominal pressure. I attempted advancing 3.75 x 20 mm NC balloon but the balloon would not cross from the left main to the left circumflex but with adjunctive use of guide liner I was able to get the balloon to the proximal LCx were the balloon was inflated under 22 aby for 20 seconds. Final angiogram showed good angiographic results and the procedure was completed without any complications CONCLUSION: #1 Acute non-ST elevation myocardial infarction #2 Critical disease involving the LCx/OM system #3 Normal left main coronary artery #4 Normal left anterior descending artery #5 Chronic total occlusion of the RCA as described above #6 Elevated left-sided filling pressure POSTPROCEDURE MANAGEMENT: #1 dual antiplatelet therapy using Aspirin as well as Ticagrelor for 12 month #2 aggressive cholesterol control #3 follow-up with the patient
[2021-12-21 10:44] VITALS: TEMP 98
[2021-12-21 11:45] VITALS: BP 111/71; PULSE 73
--- NOTE | 2021-12-21 14:38 | P.DS ---
Providers Date of admission: 12/20/21 12:59 Expected date of discharge: 12/21/21 Attending physician: Jacqueline Guevara MD Consults: 12/20/21 12:59 Consult Physician Urgent Consulting Provider: Amy Meade Consult Reason/Comments: nstemi Do you want consulting provider notified?: Already Contacted 12/21/21 10:09 Consult Physician Routine Consulting Provider: [facility] Consult Reason/Comments: Post Interventional Patient Do you want consulting provider notified?: Already Contacted Primary care physician: Stated None Hospital Course: 46-year-old male with hx of HTN not compliant with meds who presents to the emergency department for chest pressure. He drank alot last night and smoked marijuana, woke up this am felt fine initially but later he started having severe chest pressure radiating to the back and the left shoulder associated with some diaphoresis and shortness of breath, nausea and vomiting. Just prior to coming to the emergency department he took one of his family members nitroglycerin which improved his symptoms. Patient reports that his extensive family history of heart attacks. Mother had her first MD in her late 30s and father had CAD as well but he was cocaine user. Patient states that he lost 40 pounds over the past 4 months, and that he has been trying to live a healthy lifestyle. However he smokes 2 PPD, daily marijuana and drinks on weekends regularly. In the ER his vitals ok, trops was up to 3. CXR mild medial lung base density that could be atelectasis or infiltrates.. He was admitted to medicine with cardiology on consult. She was started on heparin drip, given aspirin. Patient was taken to the Application Penetration Tester by cardiology and was found to have obtuse marginal circumflex stenoses, had angioplasty with stent placements. He did well post cath. Echocardiogram showed moderate concentric LVH with preserved LV function. He was having some sob today, lung exam revealed some wheezing. He does have hx of asthma. He will be discharged with albuterol script. I emphasized on him quitting smoking, drinking and having to exercise. He verbalized understanding. Fasting blood sugars and A1c was elevated. His A1c was at 6.6. He likely has new-onset diabetes type 2. Exercise and weight loss were emphasized and patient, he will be started on jardiance for that as this medicine has been her cardiac profile compared to others. time for discharge 35 min Patient Condition at Discharge: Serious Plan - Discharge Summary Discharge Rx Participant: No New Discharge Prescriptions: New Aspirin 81 mg PO DAILY 90 Days #90 tab Ticagrelor [Brilinta] 90 mg PO BID 30 Days #60 tab Metoprolol Tartrate [Lopressor] 25 mg PO BID 30 Days #60 tab Nitroglycerin Sl Tabs [Nitrostat] 0.4 mg SUBLINGUAL Q5M PRN 30 Days #90 tab PRN Reason: Chest Pain Albuterol Sulfate [Proair Hfa] 1 - 2 puff INHALATION Q6HR PRN 30 Days #8.5 gm PRN Reason: Shortness Of Breath Empagliflozin [Jardiance] 10 mg PO DAILY 30 Days #30 tablet Nicotine 21Mg/24Hr Patch [Habitrol] 1 patch TRANSDERM DAILY 20 Days #20 patch Atorvastatin [Lipitor] 80 mg PO DAILY 30 Days #30 tab Discontinued lisinopriL [Zestril] 10 mg PO DAILY Discharge Medication List Albuterol Sulfate [Proair Hfa] 1 - 2 puff INHALATION Q6HR PRN 30 Days #8.5 gm 12/21/21 [Rx] Aspirin 81 mg PO DAILY 90 Days #90 tab 12/21/21 [Rx] Atorvastatin [Lipitor] 80 mg PO DAILY 30 Days #30 tab 12/21/21 [Rx] Empagliflozin [Jardiance] 10 mg PO DAILY 30 Days #30 tablet 12/21/21 [Rx] Metoprolol Tartrate [Lopressor] 25 mg PO BID 30 Days #60 tab 12/21/21 [Rx] Nicotine 21Mg/24Hr Patch [Habitrol] 1 patch TRANSDERM DAILY 20 Days #20 patch 12/21/21 [Rx] Nitroglycerin Sl Tabs [Nitrostat] 0.4 mg SUBLINGUAL Q5M PRN 30 Days #90 tab 12/21/21 [Rx] Ticagrelor [Brilinta] 90 mg PO BID 30 Days #60 tab 12/21/21 [Rx] Follow up Appointment(s)/Referral(s): None,Stated [Primary Care Provider] - 1-2 days
[2021-12-21 18:24] LABS: Chol/HDL Ratio 8.04 Ratio
[2021-12-21] MEDS ORDERED: TICAGRELOR 90 MG TAB PO SCH (21:00)
[2021-12-22] MEDS ORDERED: ATORVASTATIN 80 MG TAB PO SCH (09:00)
[2021-12-22] MEDS ORDERED: ASPIRIN 81 MG PO SCH (09:00)
== END 2021-12-21 16:31 | disposition home or self-care (01) | DRG 247 ==
LOC: EC 10:53 → 3SCARD 12:59
PROVIDERS: ADMIT Internal Medicine; ATTEND Internal Medicine
PROC: 027134Z Dilation of Coronary Artery, Two Arteries with Drug-eluting Intraluminal Device, Percutaneous Approach (ICD-10-PCS; principal; 2021-12-21 09:00)
PROC: 4A023N7 Measurement of Cardiac Sampling and Pressure, Left Heart, Percutaneous Approach (ICD-10-PCS; 2021-12-21 09:00)
PROC: B2111ZZ Fluoroscopy of Multiple Coronary Arteries using Low Osmolar Contrast (ICD-10-PCS; 2021-12-21 09:00)
DX: I21.4 Non-ST elevation (NSTEMI) myocardial infarction (principal); I25.10 Atherosclerotic heart disease of native coronary artery without angina pectoris; I25.2 Old myocardial infarction; J45.909 Unspecified asthma, uncomplicated; I10 Essential (primary) hypertension; F41.9 Anxiety disorder, unspecified; F17.210 Nicotine dependence, cigarettes, uncomplicated; E11.65 Type 2 diabetes mellitus with hyperglycemia; E66.9 Obesity, unspecified; F10.10 Alcohol abuse, uncomplicated; E78.00 Pure hypercholesterolemia, unspecified; E78.5 Hyperlipidemia, unspecified; I08.1 Rheumatic disorders of both mitral and tricuspid valves; F12.10 Cannabis abuse, uncomplicated; Z79.899 Other long term (current) drug therapy; Z82.49 Family history of ischemic heart disease and other diseases of the circulatory system; Z86.73 Personal history of transient ischemic attack (TIA), and cerebral infarction without residual deficits; Z91.14 Patient's other noncompliance with medication regimen; Z68.37 Body mass index [BMI] 37.0-37.9, adult; Z88.7 Allergy status to serum and vaccine; Z91.030 Bee allergy status; Z71.6 Tobacco abuse counseling; Z71.41 Alcohol abuse counseling and surveillance of alcoholic
CPT/HCPCS: 36415; 71046; 80053; 80061; 83036; 83721; 83735; 84100; 84484; 85025; 85610; 85730; 93005; 93306; 93458; 96374; 99285

== ENCOUNTER 2022-04-21 02:26 | Observation (INO) | payer BC, OTHER ==
[2022-04-21 02:57] LABS: Basophils % (A) 1 %; Eosinophils # (A) 0.2 k/uL (0-0.7); Eosinophils % (A) 2 %; HCT 43.7 % (39.0-53.0); HGB 14.9 gm/dL (13.0-17.5); Lymphocytes # (A) 1.9 k/uL (1.0-4.8); Lymphocytes % (A) 22 %; MCH 30.2 pg (25.0-35.0); MCHC 34.1 g/dL (31.0-37.0); MCV 88.5 fL (80.0-100.0); Mean Platelet Volume 8.7; Monocytes # (A) 0.5 k/uL (0-1.0); Monocytes % (A) 6 %; Neutrophils # (A) 5.8 k/uL (1.3-7.7); Neutrophils % (A) 68 %; Platelet Count 237 k/uL (150-450); RBC 4.94 m/uL (4.30-5.90); RDW 12.9 % (11.5-15.5); WBC 8.5 k/uL (3.8-10.6)
--- NOTE | 2022-04-21 03:00 | XR ---
EXAMINATION TYPE: XR chest 2V DATE OF EXAM: 04/21/2022 COMPARISON: 12/20/2021 HISTORY: Chest pain TECHNIQUE: FINDINGS: Heart and mediastinum are normal. Lungs are clear. Diaphragm is normal. Bony thorax appears intact. The pulmonary vascularity is normal. IMPRESSION: Normal chest. No change.
[2022-04-21 03:09] LABS: ALT 30 U/L (4-49); AST 26 U/L (17-59); African American GFR (CKD) >90 (>60 ml/min/1.73 sqM); Albumin 4.4 g/dL (3.5-5.0); Alkaline Phosphatase 86 U/L (38-126); Anion Gap 10 mmol/L; Blood Urea Nitrogen 15 mg/dL (9-20); Calcium 8.9 mg/dL (8.4-10.2); Carbon Dioxide 26 mmol/L (22-30); Chloride 102 mmol/L (98-107); Glucose 117 mg/dL (74-99); Lipase 43 U/L (23-300); Non-African American GFR(CKD) >90 (>60 ml/min/1.73 sqM); Potassium 3.8 mmol/L (3.5-5.1); Sodium 138 mmol/L (137-145)
[2022-04-21 03:17] LABS: INR 1.1 (<1.2); Partial Thromboplastin Time 27.8 sec (22.0-30.0); Prothrombin Time 11.8 sec (9.0-12.0)
--- NOTE | 2022-04-21 04:51 | ED ---
Chest Pain HPI - General Chief Complaint: Chest Pain Stated Complaint: Chest pain Time Seen by Provider: 04/21/22 04:00 Source: patient Mode of arrival: ambulatory Limitations: no limitations - History of Present Illness Initial Comments: 46-year-old male with past medical history of diabetes, hypertension, coronary disease who presents to emergency department with reported chest pain. Patient has history of coronary disease with 2 stents which were placed in November. Reports that he has had some chest pressure over the past several days however he was at work at 2 AM when he had sudden onset of diaphoresis, nausea and significant chest pressure. He does have nitro available. States that he took one and did alleviate some of the pressure. Reports that it did give him a headache. No fevers, chills or cough. Ripping or tearing sensation to his back. He has been taking his antiplatelet without any missed doses. No other alleviating, precipitating or modifying factors - Related Data Home Medications Medication Instructions Recorded Confirmed Albuterol Sulfate [Proair Hfa] 1 - 2 puff INHALATION RT-Q6H PRN 04/21/22 04/21/22 Aspirin EC [Ecotrin Low Dose] 81 mg PO HS 04/21/22 04/21/22 Clopidogrel [Plavix] 75 mg PO HS 04/21/22 04/21/22 Nitroglycerin Sl Tabs [Nitrostat] 0.4 mg SL Q5M PRN 04/21/22 04/21/22 Previous Rx's Medication Instructions Recorded Metoprolol Tartrate [Lopressor] 25 mg PO BID 30 Days #60 tab 12/21/21 Losartan [Cozaar] 50 mg PO DAILY 30 Days #30 tab 04/21/22 Rosuvastatin [Crestor] 20 mg PO DAILY #90 tablet 04/21/22 Allergies Allergy/AdvReac Type Severity Reaction Status Date / Time bee venom protein (honey bee) Allergy Swelling Verified 04/21/22 08:18 at site of sting Tetanus Vaccines and Toxoid Allergy Anaphylaxis Verified 04/21/22 08:18 Review of Systems ROS Statement: Those systems with pertinent positive or pertinent negative responses have been documented in the HPI. ROS Other: All systems not noted in ROS Statement are negative. EKG Findings - EKG Comments: EKG Findings:: EKG demonstrates sinus rhythm with a rate of 78. [place] interval 175. QRS 19. QTC of 432. No acute ST segment elevations or depressions concerning for ischemic changes Past Medical History Past Medical History: Diabetes Mellitus, Hypertension, Myocardial Infarction ([place]) Additional Past Medical History / Comment(s): TIA Last Myocardial Infarction Date:: n/a History of Any Multi-Drug Resistant Organisms: None Reported Past Surgical History: Appendectomy, Cholecystectomy Past Psychological History: Anxiety Smoking Status: Current every day smoker Past Alcohol Use History: None Reported, Heavy Past Drug Use History: Marijuana General Exam Limitations: no limitations General appearance: alert, in no apparent distress Head exam: Present: atraumatic, normocephalic, normal inspection Eye exam: Present: normal appearance, PERRL, EOMI. Absent: scleral icterus, conjunctival injection, periorbital swelling ENT exam: Present: normal exam, mucous membranes moist Neck exam: Present: normal inspection. Absent: tenderness, meningismus, lymphadenopathy Respiratory exam: Present: normal lung sounds bilaterally. Absent: respiratory distress, wheezes, rales, rhonchi, stridor Cardiovascular Exam: Present: regular rate, normal rhythm, normal heart sounds. Absent: systolic murmur, diastolic murmur, rubs, gallop, clicks GI/Abdominal exam: Present: soft, normal bowel sounds. Absent: distended, tenderness, guarding, rebound, rigid Extremities exam: Present: normal inspection, full ROM, normal capillary refill. Absent: tenderness, pedal edema, joint swelling, calf tenderness Back exam: Present: normal inspection Neurological exam: Present: alert, oriented X3, CN II-XII intact Psychiatric exam: Present: normal affect, normal mood Skin exam: Present: warm, dry, intact, normal color. 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 History and physical exam is performed. Patient placed on continuous pulse ox and cardiac monitoring. 12- lead EKG is obtained. Laboratory studies are conducted. Troponin is negative. Chest x-ray demonstrates no acute process. Due to patient's significant cardiac history he will be admitted for serial troponins. Patient was agreeable to this. Patient awaiting a bed on the floor in stable condition Disposition Clinical Impression: Chest pain Disposition: ADMITTED IP TO THIS HOSP Condition: Stable Is patient prescribed a controlled substance at d/c from ED?: No Time of Disposition: 04:50 Decision to Admit Reason: Admit from EC Decision Date: 04/21/22 Decision Time: 04:50
[2022-04-21] MEDS ORDERED: NALOXONE 0.4 MG/ML 1 ML VIAL IV PRN (04:52)
[2022-04-21] MEDS ORDERED: ASPIRIN 81 MG PO STA (04:59)
[2022-04-21] MEDS ORDERED: METOPROLOL TARTRATE 25 MG TAB PO SCH (09:00)
[2022-04-21] MEDS ORDERED: ATORVASTATIN 10 MG TAB PO SCH (09:00)
[2022-04-21 09:03] VITALS: RESP 18
[2022-04-21] MEDS ORDERED: LOSARTAN 50 MG TAB PO SCH (09:30)
--- NOTE | 2022-04-21 11:19 | P.CRDCN ---
History of Present Illness Consult date: 04/21/22 History of present illness: HISTORY OF PRESENT ILLNESS: This is a 46-year-old male with a past medical history significant for coronary artery disease with previous stenting, hypertension, hyperlipidemia, diabetes, nicotine dependence, and former alcohol use. Patient follows in the office with Dr. Foley. We have been asked to see the patient in consultation for chest pain. Patient examined at the bedside. Patient states yesterday he began having chest pain that radiated into his shoulder. He reports feeling diaphoretic. He also reports feeling short of breath. He states he took nitro which relieved his pain but then 15 minutes later the pressure started back again. The patient reports his blood pressure was significantly elevated with a systolic around 180. His blood pressure has improved and since that time he has not had any fu rther episodes of chest pain or pressure. The patient reports he is a current cigarette smoker and smokes about 15 cigarettes per day. * EKG reveals sinus mechanism with no signs of acute ischemia * Chest xray negative for acute process * Laboratory data: WBC 8.5. Hemoglobin 14.9. Platelet count 237. Sodium 138. Potassium 3.8. BUN 15. Creatinine 0.68. Troponin negative 2. * Current home cardiac medications include Crestor 5 mg daily, metoprolol titrate 25 mg twice a day, Plavix 75 mg at night, aspirin 81 mg at night * Most recent echocardiogram obtained in November 2021 revealed ejection fraction 50-55% * Cardiac catheterization history: November 2021 with stenting of the left circumflex. Patient was also found to have chronic total occlusion of the RCA. REVIEW OF SYSTEMS: At the time of my exam: CONSTITUTIONAL: Denies fever or chills. HEENT: Denies blurred vision, vision changes, or eye pain. Denies hemoptysis CARDIOVASCULAR: Denies chest pain. Denies orthopnea. Denies PND. Denies palpitations RESPIRATORY: Denies shortness of breath. GASTROINTESTINAL: Denies abdominal pain. Denies nausea or vomiting. HEMATOLOGIC: Denies bleeding disorders. GENITOURINARY: Denies any blood in urine. SKIN: Denies pruitis. Denies rash. PHYSICAL EXAM: VITAL SIGNS: Reviewed. GENERAL: Well-developed in no acute distress. HEENT: Head is normocephalic. Pupils are equal, round. Sclerae anicteric. Mucous membranes of the mouth are moist. Neck supple. No JVD or thyromegaly LUNGS: Respirations even and unlabored. Lungs essentially clear to auscultation bilaterally. HEART: Regular rate and rhythm. S1 and S2 heard. ABDOMEN: Soft. Nondistended. Nontender. EXTREMITIES: Normal range of motion. No clubbing or cyanosis. Peripheral pulses intact. No lower extremity edema NEUROLOGIC: Awake and alert. Oriented x 3. ASSESSMENT: Chest pain, troponins negative 2 Hypertension, uncontrolled at home Coronary artery disease with previous stenting Hyperlipidemia Diabetes Nicotine dependence PLAN: An acute coronary has been ruled out. Patient unable to tolerate atorvastatin. He was changed to Crestor by his primary care physician. Recommend increasing dose to 20 mg. Add losartan 50 mg daily Smoking cessation recommended Patient may be discharged home today from a cardiac standpoint and follow up outpatient with Dr. Foley Nurse practitioner note has been reviewed by physician. Signing provider agrees with the documented findings, assessment, and plan of care. Past Medical History Past Medical History: Diabetes Mellitus, Hypertension, Myocardial Infarction ([place]) Additional Past Medical History / Comment(s): TIA Last Myocardial Infarction Date:: n/a History of Any Multi-Drug Resistant Organisms: None Reported Past Surgical History: Appendectomy, Cholecystectomy Past Psychological History: Anxiety Smoking Status: Current every day smoker Past Alcohol Use History: None Reported, Heavy Past Drug Use History: Marijuana Medications and Allergies Home Medications Medication Instructions Recorded Confirmed Type Metoprolol Tartrate [Lopressor] 25 mg PO BID 30 Days #60 tab 12/21/21 04/21/22 Rx Albuterol Sulfate [Proair Hfa] 1 - 2 puff INHALATION RT-Q6H PRN 04/21/2204/21 History Aspirin EC [Ecotrin Low Dose] 81 mg PO HS 04/21/22 04/21/22 History Clopidogrel [Plavix] 75 mg PO HS 04/21/22 04/21/22 History Nitroglycerin Sl Tabs [Nitrostat] 0.4 mg SL Q5M PRN 04/21/22 04/21/22 History Rosuvastatin Calcium 5 mg PO DAILY 04/21/22 04/21/22 History Allergies Allergy/AdvReac Type Severity Reaction Status Date / Time bee venom protein (honey bee) Allergy Swelling Verified 04/21/22 08:18 at site of sting Tetanus Vaccines and Toxoid Allergy Anaphylaxis Verified 04/21/22 08:18 Physical Exam Vitals: Vital Signs Temp Pulse Pulse Resp BP Pulse Ox 04/21/22 08:59 60 60 18 135/81 98 04/21/22 02:28 97.5 F L 75 16 163/77 98 Intake and Output 04/20/22 04/21/22 04/21/22 22:59 06:59 14:59 Other: Weight 113.398 kg Results 04/21/22 02:48 04/21/22 02:48 Cardiac Enzymes 04/21/22 04/21/22 04/21/22 Range/Units 02:48 02:48 05:44 AST 26 (17-59) U/L Troponin I <0.012 <0.012 (0.000-0.034) ng/mL Coagulation 04/21/22 Range/Units 02:48 PT 11.8 (9.0-12.0) sec APTT 27.8 (22.0-30.0) sec CBC 04/21/22 Range/Units 02:48 WBC 8.5 (3.8-10.6) k/uL RBC 4.94 (4.30-5.90) m/uL Hgb 14.9 (13.0-17.5) gm/dL Hct 43.7 (39.0-53.0) % Plt Count 237 (150-450) k/uL Comprehensive Metabolic Panel 04/21/22 Range/Units 02:48 Sodium 138 (137-145) mmol/L Potassium 3.8 (3.5-5.1) mmol/L Chloride 102 (98-107) mmol/L Carbon Dioxide 26 (22-30) mmol/L BUN 15 (9-20) mg/dL Creatinine 0.68 (0.66-1.25) mg/dL Glucose 117 H (74-99) mg/dL Calcium 8.9 (8.4-10.2) mg/dL AST 26 (17-59) U/L ALT 30 (4-49) U/L Alkaline Phosphatase 86 (38-126) U/L Total Protein 7.0 (6.3-8.2) g/dL Albumin 4.4 (3.5-5.0) g/dL Current Medications Generic Name Dose Route Start Last Admin Trade Name Freq PRN Reason Stop Dose Admin Aspirin 81 mg 04/21/22 21:00 Aspirin 81 Mg PO HS KLAUDIA Atorvastatin Calcium 20 mg 04/22/22 09:00 Atorvastatin 20 Mg Tab PO DAILY KLAUDIA Clopidogrel Bisulfate 75 mg 04/21/22 21:00 Clopidogrel 75 Mg Tab PO HS KLAUDIA Losartan Potassium 50 mg 04/21/22 09:30 04/21/22 09:37 Losartan 50 Mg Tab PO 50 mg DAILY KLAUDIA Administration Metoprolol Tartrate 25 mg 04/21/22 09:00 04/21/22 09:03 Metoprolol Tartrate 25 Mg Tab PO 25 mg BID KLAUDIA Administration Naloxone HCl 0.2 mg 04/21/22 04:52 Naloxone 0.4 Mg/Ml 1 Ml Vial IV Q2M PRN Opioid Reversal Intake and Output 04/20/22 04/21/22 04/21/22 22:59 06:59 14:59 Other: Weight 113.398 kg 04/21/22 02:48 04/21/22 02:48
--- NOTE | 2022-04-21 12:35 | P.HPIM ---
History of Present Illness H&P Date: 04/21/22 History of Presenting Illness: Patient is a very pleasant 40-year-old male with a past medical history of coronary artery disease status post stent placement 11/2021 on 2 antiplatelet therapy with aspirin and Plavix, hypertension, hyperlipidemia, and nicotine dependence. Patient presented to the emergency department with a chief complaint of chest pain. Patient reports experiencing intermittent chest pressure/pain over the past few days and while at work he developed sudden onset chest pressure accompanied by nausea and diaphoresis. Patient reports that he took a sublingual nitroglycerin which resulted in alleviation of pain. Upon arrival to our facility patient was found to have slightly elevated blood pressure of 163/77, heart rate 75, respiratory rate 16, SpO2 of 90% on room air. Patient then underwent full evaluation in the emergency department. CBC, coags, and CMP were unremarkable. Troponin less than 0.012. EKG showing normal sinus rhythm at 78 bpm with no noted T-wave or ST abnormalities. Chest x-ray negative for acute cardiopulmonary process. Patient currently remains free from chest pain or any other complaints at this time including headache, lightheadedness, dizziness, palpitations, shortness of breath, exertional dyspnea, or experiencing any numbness/tingling/weakness in his extremities. Patient was admitted under our services with consultation to cardiology. Review of systems: Pertinent positives and negatives as discussed in HPI, a complete review of systems was performed and all other systems are negative. Physical exam: Vital signs reviewed and stable. General: Nontoxic, no distress and appears stated age. Derm: Skin warm and dry, normal coloration for ethnicity. Head: Atraumatic, normocephalic and symmetric. Eyes: EOMs intact, no lid lag, and anicteric sclera Mouth: no lip lesions, mucus membranes moist Cardiovascular: regular rate and rhythm with normal S1S2, no murmur, positive posterior tibial pulses bilaterally, and cap refill < 2 seconds. Lungs: Respirations even, regular, and unlabored on room air. Lungs CTA bilaterally, no rhonchi, no rales, no wheezing, and no accessory muscle usage. Abdominal: soft, nontender to palpation, no guarding, no appreciable organomegaly Ext: ROM intact. No gross muscle atrophy, no edema, no contractures Neuro: Speech clear, face symmetrical and CN II-XII grossly intact with no noted focal neuro deficits Psych: Alert and oriented to person, place, time, and situation. Appropriate and pleasant affect. Assessment and Plan of Care: Chest pain, rule out acute coronary event Hypertension Hyperlipidemia -Cardiology consult, appreciate further recommendations -Telemetry monitoring -Trend troponins -Cardiac diet, NPO at midnight -Aspirin, Plavix atorvastatin, losartan and metoprolol The patient is admitted with an anticipated less than 2 midnight stay for evaluation of chest pain. CODE STATUS: Full code DVT prophylaxis: Heparin Discussed with: Patient and RN Anticipated discharge date: Tomorrow Anticipated discharge place: Home A total of 43 minutes was spent on the care of this complex patient more than 50% of the time was spent in counseling and care coordination. I reviewed the documentation as provided by the MICH above, who is the original author of this note. I agree with the documented assessment and plan, with the following changes: none Past Medical History Past Medical History: Diabetes Mellitus, Hypertension, Myocardial Infarction (CT) Additional Past Medical History / Comment(s): TIA Last Myocardial Infarction Date:: n/a History of Any Multi-Drug Resistant Organisms: None Reported Past Surgical History: Appendectomy, Cholecystectomy Past Psychological History: Anxiety Smoking Status: Current every day smoker Past Alcohol Use History: None Reported, Heavy Past Drug Use History: Marijuana Medications and Allergies Home Medications Medication Instructions Recorded Confirmed Type Metoprolol Tartrate [Lopressor] 25 mg PO BID 30 Days #60 tab 12/21/21 04/21/22 Rx Albuterol Sulfate [Proair Hfa] 1 - 2 puff INHALATION RT-Q6H PRN 04/21/22 04/21/22 History Aspirin EC [Ecotrin Low Dose] 81 mg PO HS 04/21/22 04/21/22 History Clopidogrel [Plavix] 75 mg PO HS 04/21/22 04/21/22 History Losartan [Cozaar] 50 mg PO DAILY 30 Days #30 tab 04/21/22 Rx Nitroglycerin Sl Tabs [Nitrostat] 0.4 mg SL Q5M PRN 04/21/22 04/21/22 History Rosuvastatin [Crestor] 20 mg PO DAILY #90 tablet 04/21/22 Rx Allergies Allergy/AdvReac Type Severity Reaction Status Date / Time bee venom protein (honey bee) Allergy Swelling Verified 04/21/22 08:18 at site of sting Tetanus Vaccines and Toxoid Allergy Anaphylaxis Verified 04/21/22 08:18 Physical Exam Vitals: Vital Signs Temp Pulse Resp BP Pulse Ox 04/21/22 02:28 97.5 F L 75 16 163/77 98 Intake and Output 04/20/22 04/21/22 04/21/22 22:59 06:59 14:59 Other: Weight 113.398 kg Results CBC & Chem 7: 04/21/22 02:48 04/21/22 02:48 Labs: Abnormal Lab Results - Last 24 Hours (Table) 04/21/22 Range/Units 02:48 Glucose 117 H (74-99) mg/dL
[2022-04-21 13:17] VITALS: BP 152/91; PULSE 68; TEMP 98
--- NOTE | 2022-04-21 13:30 | P.DS ---
Providers Date of admission: 04/21/22 04:59 Expected date of discharge: 04/21/22 Attending physician: Hugh Cordero MD Primary care physician: Roxanne Anaya Hospital Course: Discharge Diagnosis: Chest pain, acute coronary event ruled out. Hypertension, poorly controlled. Patient started on losartan in addition to daily blood pressure medication regimen with metoprolol. Hyperlipidemia. Nicotine dependence, recommend smoking cessation as we discussed. Hospital Course: Patient is a very pleasant 40-year-old male with a past medical history of coronary artery disease status post stent placement 11/2021 on 2 antiplatelet therapy with aspirin and Plavix, hypertension, hyperlipidemia, and nicotine dependence. Patient presented to the emergency department with a chief complaint of chest pain. Patient reports experiencing intermittent chest pressure/pain over the past few days and while at work he developed sudden onset chest pressure accompanied by nausea and diaphoresis. Patient reports that he took a sublingual nitroglycerin which resulted in alleviation of pain. Upon arrival to our facility patient was found to have slightly elevated blood pressure of 163/77, heart rate 75, respiratory rate 16, SpO2 of 90% on room air. Patient then underwent full evaluation in the emergency department. CBC, coags, and CMP were unremarkable. Troponin less than 0.012. EKG showing normal sinus rhythm at 78 bpm with no noted T-wave or ST abnormalities. Chest x-ray negative for acute cardiopulmonary process. Patient currently remains free from chest pain or any other complaints at this time including headache, lightheadedness, dizziness, palpitations, shortness of breath, exertional dyspnea, or experiencing any numbness/tingling/weakness in his extremities. Patient was admitted under our services with consultation to cardiology. Troponins were trended all negative at less than 0.0123 draws. Patient was evaluated by cardiology and started on losartan in addition to daily medication regimen with metoprolol. Cardiology recommending outpatient follow-up in their office. Patient is medically stable for discharge at this time. Patient follow-up outpatient with PCP in 1-2 days and cardiology in 1 week. Patient strongly educated on the importance of smoking cessation and risks of continued use. Physical exam: Vital signs reviewed and stable. General: Nontoxic, no distress and appears stated age. Derm: Skin warm and dry, normal coloration for ethnicity. Head: Atraumatic, normocephalic and symmetric. Eyes: EOMs intact, no lid lag, and anicteric sclera Mouth: no lip lesions, mucus membranes moist Cardiovascular: regular rate and rhythm with normal S1S2, no murmur, positive posterior tibial pulses bilaterally, and cap refill < 2 seconds. Lungs: Respirations even, regular, and unlabored on room air. Lungs CTA bilaterally, no rhonchi, no rales, no wheezing, and no accessory muscle usage. Abdominal: soft, nontender to palpation, no guarding, no appreciable organomegaly Ext: ROM intact. No gross muscle atrophy, no edema, no contractures Neuro: Speech clear, face symmetrical and CN II-XII grossly intact with no noted focal neuro deficits Psych: Alert and oriented to person, place, time, and situation. Appropriate and pleasant affect. A total of 33 minutes of time were spent preparing this complex discharge summary. Pt was discharged on 04/21/22 at 12:36 PM I reviewed the documentation as provided by the MICH above, who is the original author of this note. I agree with the documented assessment and plan, with the following changes: none Patient Condition at Discharge: Stable Plan - Discharge Summary New Discharge Prescriptions: New Rosuvastatin [Crestor] 20 mg PO DAILY #90 tablet Losartan [Cozaar] 50 mg PO DAILY 30 Days #30 tab Continue Metoprolol Tartrate [Lopressor] 25 mg PO BID 30 Days #60 tab Clopidogrel [Plavix] 75 mg PO HS Aspirin EC [Ecotrin Low Dose] 81 mg PO HS Albuterol Sulfate [Proair Hfa] 1 - 2 puff INHALATION RT-Q6H PRN PRN Reason: Shortness Of Breath Nitroglycerin Sl Tabs [Nitrostat] 0.4 mg SL Q5M PRN PRN Reason: Chest Pain Discontinued Rosuvastatin Calcium 5 mg PO DAILY Discharge Medication List Metoprolol Tartrate [Lopressor] 25 mg PO BID 30 Days #60 tab 12/21/21 [Rx] Albuterol Sulfate [Proair Hfa] 1 - 2 puff INHALATION RT-Q6H PRN 04/21/22 [History] Aspirin EC [Ecotrin Low Dose] 81 mg PO HS 04/21/22 [History] Clopidogrel [Plavix] 75 mg PO HS 04/21/22 [History] Losartan [Cozaar] 50 mg PO DAILY 30 Days #30 tab 04/21/22 [Rx] Nitroglycerin Sl Tabs [Nitrostat] 0.4 mg SL Q5M PRN 04/21/22 [History] Rosuvastatin [Crestor] 20 mg PO DAILY #90 tablet 04/21/22 [Rx] Follow up Appointment(s)/Referral(s): Tanner Foley MD [STAFF PHYSICIAN] - 1 Week Roxanne Anaya MD [Primary Care Provider] - 1-2 days Activity/Diet/Wound Care/Special Instructions: Activity: As tolerated. Take breaks as needed. Diet: Heart healthy and carb consistent diet. Avoid salts, or foods with hidden salts such as canned or boxed foods and frozen dinners. Extra salt makes your heart work harder and traps the fluid in your body for longer. Special Instructions: Take all of your medications as directed and remember to keep all of your doctor's appointments and follow-up as needed. Highly recommend smoking cessation. Thank you for allowing us to participate in your care, it was truly a pleasure having you for our patient!!! Discharge Disposition: HOME SELF-CARE
[2022-04-21 15:40] LABS: Chol/HDL Ratio 3.98 Ratio; LDL Cholesterol,Calculated 83.5 mg/dL (0.0-131.0); VLDL Calculation 17.58 mg/dL (5.00-40.00)
[2022-04-21] MEDS ORDERED: CLOPIDOGREL 75 MG TAB PO SCH (21:00)
[2022-04-21] MEDS ORDERED: ASPIRIN 81 MG PO SCH (21:00)
[2022-04-22] MEDS ORDERED: ATORVASTATIN 20 MG TAB PO SCH (09:00)
== END 2022-04-21 17:51 | disposition home or self-care (01) ==
LOC: EC 02:26 → 6NMEDSUR 04:59
PROVIDERS: ADMIT Internal Medicine; ATTEND Internal Medicine
DX: R07.89 Other chest pain (principal); E78.5 Hyperlipidemia, unspecified; E11.9 Type 2 diabetes mellitus without complications; I10 Essential (primary) hypertension; I25.10 Atherosclerotic heart disease of native coronary artery without angina pectoris; I25.2 Old myocardial infarction; F41.9 Anxiety disorder, unspecified; F12.90 Cannabis use, unspecified, uncomplicated; F17.210 Nicotine dependence, cigarettes, uncomplicated; Z79.82 Long term (current) use of aspirin; Z79.899 Other long term (current) drug therapy; Z79.84 Long term (current) use of oral hypoglycemic drugs; Z79.02 Long term (current) use of antithrombotics/antiplatelets; Z86.73 Personal history of transient ischemic attack (TIA), and cerebral infarction without residual deficits; Z90.49 Acquired absence of other specified parts of digestive tract; Z95.5 Presence of coronary angioplasty implant and graft
CPT/HCPCS: 99285; 36415; 93005; 80061; 80053; 83690; 83735; 84484; 85025; 85610; 85730; 83036; 71046; G0378

== ENCOUNTER 2022-09-21 07:01 | Emergency (ER) | payer BC, OTHER ==
[2022-09-21 07:15] VITALS: TEMP 97.7
[2022-09-21] MEDS ORDERED: SODIUM CHLORIDE 0.9% 500 ML 500 ML IV STA (07:20)
--- NOTE | 2022-09-21 07:33 | ED ---
Arrhythmia/Palpitations HPI - General Chief Complaint: Arrhythmia/Palpitations Stated Complaint: tachycardia Time Seen by Provider: 09/21/22 07:17 Source: patient, RN notes reviewed, old records reviewed Mode of arrival: ambulatory Limitations: no limitations - History of Present Illness Initial Comments: This is a well-appearing 47-year-old male presents to the emergency room with complaints of palpitations and rapid heart rate that started about 8:30 last night. Patient states symptoms come and go. Heart rate between 110 and 120 at times. He does have a history of smoking, hypertension, NM, diabetes, hyperlipidemia, TIA, and cardiac stent placed in November [address] Foley. Patient states he is currently on Plavix and metoprolol. MD Complaint: rapid heart beat, "heart racing", palpitations -: hour(s) (12) Context: occurred during rest Associated Symptoms: denies other symptoms Treatments Prior to Arrival: beta-abhishek - Related Data Home Medications Medication Instructions Recorded Confirmed Albuterol Sulfate [Proair Hfa] 1 - 2 puff INHALATION RT-Q6H PRN 04/21/22 09/21/22 Aspirin EC [Ecotrin Low Dose] 81 mg PO HS@199904/21/22 09/21/22 Clopidogrel [Plavix] 75 mg PO HS@199904/21/22 09/21/22 Nitroglycerin Sl Tabs [Nitrostat] 0.4 mg SL Q5M PRN 04/21/22 09/21/22 Losartan [Cozaar] 50 mg PO DAILY@39909/21/22 09/21/22 Metoprolol Tartrate [Lopressor] 25 mg PO BID@0809/21/22 09/21/22 Rosuvastatin [Crestor] 20 mg PO HS@199909/21/22 09/21/22 hydroCHLOROthiazide [Hydrodiuril] 12.5 mg PO DAILY@39909/21/22 09/21/22 Allergies Allergy/AdvReac Type Severity Reaction Status Date / Time bee venom protein (honey bee) Allergy Swelling Verified 09/21/22 07:41 at site of sting Tetanus Vaccines and Toxoid Allergy Anaphylaxis Verified 09/21/22 07:41 Review of Systems ROS Statement: Those systems with pertinent positive or pertinent negative responses have been documented in the HPI. ROS Other: All systems not noted in ROS Statement are negative. Past Medical History Past Medical History: Diabetes Mellitus, Hypertension, Myocardial Infarction (NM) Additional Past Medical History / Comment(s): TIA Last Myocardial Infarction Date:: n/a History of Any Multi-Drug Resistant Organisms: None Reported Past Surgical History: Appendectomy, Cholecystectomy Past Psychological History: Anxiety Smoking Status: Current every day smoker Past Alcohol Use History: None Reported, Heavy Past Drug Use History: Marijuana General Exam Limitations: no limitations General appearance: alert, in no apparent distress Head exam: Present: atraumatic, normocephalic Eye exam: Present: normal appearance. Absent: scleral icterus, conjunctival injection, periorbital swelling, periorbital tenderness ENT exam: Present: mucous membranes moist Neck exam: Absent: meningismus Respiratory exam: Present: normal lung sounds bilaterally. Absent: respiratory distress, accessory muscle use Cardiovascular Exam: Present: regular rate, normal rhythm, normal heart sounds GI/Abdominal exam: Present: soft Extremities exam: Present: full ROM, normal capillary refill. Absent: pedal edema Back exam: Present: full ROM. Absent: rash noted Neurological exam: Present: alert, oriented X3 Psychiatric exam: Present: normal affect, normal mood Skin exam: Present: warm, dry, intact, normal color. Absent: cyanosis, diaphoretic, petechiae, pallor Course Vital Signs 09/21/22 09/21/22 09/21/22 07:13 07:44 07:46 Temperature 97.7 F Pulse Rate 103 H 87 Pulse Rate [ 79 Clinical Nursing Director ] Respiratory 20 18 Rate Blood Pressure 135/80 135/47 O2 Sat by Pulse 99 98 Oximetry 09/21/22 09/21/22 08:15 08:55 Temperature 97.7 F Pulse Rate 68 69 Pulse Rate [ Clinical Nursing Director ] Respiratory 18 18 Rate Blood Pressure 125/79 128/68 O2 Sat by Pulse 97 98 Oximetry EKG Findings - EKG Results: EKG: sinus rhythm (Ventricular rate of 84, OH interval 0.184, QRS 0.116, QTC 0.431, normal axis), not changed from: (04/21/22) Medical Decision Making - Medical Decision Making Patient presents with palpitations since 8 PM last night. Denies any chest pain or difficulty in breathing. He does have a history of NM with cardiac stent placed in November 2021. Last admitted to the hospital 04/21/2022 and evaluated by cardiology. Does have a history of diabetes, hypertension, NM and is a pack-a-day smoker. Currently taking Plavix, aspirin and metoprolol daily. EKG shows a ventricular rate of 84, OH interval 0.184, QRS 0.116, QTC 0.431, n ormal axis, no changes compared to old 04/21/22 Chest x-ray interpreted by me shows no evidence of focal consolidation. No evidence of free air. Trachea is midline. Cardiac silhouette within normal size. Radiologist's interpretation no acute cardiopulmonary process. CBC and electrolytes are unremarkable. Troponin negative at 0.012. Patient has had no ectopy or tachycardia in the emergency room. The patient states that he did run out of his metoprolol on Wednesday and is due to pick it up this morning. He was directed to do so. He was also directed to follow up with his metal hanger this week. Return with any new or concerning symptoms. He is agreeable to this plan of care. Discharg ed home with family. Case was discussed with Dr. Salazar. Was pt. sent in by a medical professional or institution (, PA, VAMP CUT OUT WORKER, urgent care, hospital, or penitentiary...) When possible be specific @ -No Did you speak to anyone other than the patient for history (EMS, parent, family, police, friend...)? What history was obtained from this source @ -No Did you review nursing and triage notes (agree or disagree)? Why? @ -I reviewed and agree with nursing and triage notes Were old charts reviewed (outside hosp., previous admission, EMS record, old EKG, old radiological studies, urgent care reports/EKG's, penitentiary records)? Report findings @ -yes previous cardiology records and EKGs Differential Diagnosis (chest pain, altered mental status, abdominal pain women, abdominal pain men, vaginal bleeding, weakness, fever, dyspnea, syncope, headache, dizziness, GI bleed, back pain, seizure, CVA, palpatations, mental health, musculoskeletal)? @ -Differential Palpitations Ventricular arrhythmias, atrial arrhythmias, myocardial infarction, anemia, thyrotoxicosis, electrolyte imbalance, hypokalemia, pulmonary embolism, pulmonary disease, drugs, alcohol, anxiety, stress.... This is not meant to be an all-inclusive list. EKG interpreted by me (3pts min.). @ -As above X-rays interpreted by me (1pt min.). @ -Yes as above CT interpreted by me (1pt min.). @ -None done U/S interpreted by me (1pt. min.). @ -None done What testing was considered but not performed or refused? (CT, X-rays, U/S, labs)? Why? @ -None What meds were considered but not given or refused? Why? @ -Metoprolol was considered as patient states he ran out on Wednesday however there is no evidence of ectopy or tachycardia with heart rate of 75 at discharge Did you discuss the management of the patient with other professionals (professionals i.e. , PA, VAMP CUT OUT WORKER, lab, RT, psych nurse, social media strategist, compliance attorney, teacher, correctional officer captain, case advocate)? Give summary @ -No Was smoking cessation discussed for >3mins.? @ -Yes Was critical care preformed (if so, how long)? @ -No Were there social determinants of health that impacted care today? How? (Homelessness, low income, unemployed, alcoholism, drug addiction, transportation, low edu. Level, literacy, decrease access to med. care, custodial, rehab)? @ -No Was there de-escalation of care discussed even if they declined (Discuss DNR or withdrawal of care, Hospice)? DNR status @ -No What co-morbidities impacted this encounter? (DM, HTN, Smoking, COPD, CAD, Cancer, CVA, ARF, Chemo, Hep., AIDS, mental health diagnosis, sleep apnea, morbid obesity)? @ -Smoking, coronary artery disease, NM, hypertension, anxiety Was patient admitted / discharged? Hospital course, mention meds given and route, prescriptions, significant lab abnormalities, going to OR and other pertinent info. @ -Discharged Undiagnosed new problem with uncertain prognosis? @ -No Drug Therapy requiring intensive monitoring for toxicity (Heparin, Nitro, Insulin, Cardizem)? @ -No Were any procedures done? @ -No Diagnosis/symptom? @ -Palpitations Acute, or Chronic, or Acute on Chronic? @ -Acute on chronic Uncomplicated (without systemic symptoms) or Complicated (systemic symptoms)? @ -Uncomplicated Side effects of treatment? @ -No Exacerbation, Progression, or Severe Exacerbation? @ -No Poses a threat to life or bodily function? How? (Chest pain, USA, NM, pneumonia, PE, COPD, DKA, ARF, appy, cholecystitis, CVA, Diverticulitis, Homicidal, Suicidal, threat to staff... and all critical care pts) @ -No - Lab Data Result diagrams: 09/21/22 07:28 09/21/22 07:28 Lab Results 09/21/22 09/21/22 09/21/22 Range/Units 07:28 07:28 07:28 WBC 8.7 (3.8-10.6) k/uL RBC 5.27 (4.30-5.90) m/uL Hgb 15.6 (13.0-17.5) gm/dL Hct 45.8 (39.0-53.0) % MCV 86.8 (80.0-100.0) fL MCH 29.5 (25.0-35.0) pg MCHC 34.0 (31.0-37.0) g/dL RDW 13.3 (11.5-15.5) % Plt Count 229 (150-450) k/uL MPV 8.2 Neutrophils % 69 % Lymphocytes % 21 % Monocytes % 6 % Eosinophils % 3 % Basophils % 0 % Neutrophils # 6.0 (1.3-7.7) k/uL Lymphocytes # 1.8 (1.0-4.8) k/uL Monocytes # 0.5 (0-1.0) k/uL Eosinophils # 0.2 (0-0.7) k/uL Basophils # 0.0 (0-0.2) k/uL PT 10.2 (9.0-12.0) sec INR 1.0 (<1.2) APTT 27.3 (22.0-30.0) sec Sodium 141 (137-145) mmol/L Potassium 3.9 (3.5-5.1) mmol/L Chloride 104 (98-107) mmol/L Carbon Dioxide 26 (22-30) mmol/L Anion Gap 11 mmol/L BUN 15 (9-20) mg/dL Creatinine 0.57 L (0.66-1.25) mg/dL Est GFR (CKD-EPI)AfAm >90 (>60 ml/min/1.73 sqM) Est GFR (CKD-EPI)NonAf >90 (>60 ml/min/1.73 sqM) Glucose 100 H (74-99) mg/dL Calcium 9.6 (8.4-10.2) mg/dL Magnesium 2.2 (1.6-2.3) mg/dL Total Bilirubin 0.7 (0.2-1.3) mg/dL AST 26 (17-59) U/L ALT 28 (4-49) U/L Alkaline Phosphatase 86 (38-126) U/L Troponin I (0.000-0.034) ng/mL Total Protein 8.1 (6.3-8.2) g/dL Albumin 4.7 (3.5-5.0) g/dL 09/21/22 Range/Units 07:28 WBC (3.8-10.6) k/uL RBC (4.30-5.90) m/uL Hgb (13.0-17.5) gm/dL Hct (39.0-53.0) % MCV (80.0-100.0) fL MCH (25.0-35.0) pg MCHC (31.0-37.0) g/dL RDW (11.5-15.5) % Plt Count (150-450) k/uL MPV Neutrophils % % Lymphocytes % % Monocytes % % Eosinophils % % Basophils % % Neutrophils # (1.3-7.7) k/uL Lymphocytes # (1.0-4.8) k/uL Monocytes # (0-1.0) k/uL Eosinophils # (0-0.7) k/uL Basophils # (0-0.2) k/uL PT (9.0-12.0) sec INR (<1.2) APTT (22.0-30.0) sec Sodium (137-145) mmol/L Potassium (3.5-5.1) mmol/L Chloride (98-107) mmol/L Carbon Dioxide (22-30) mmol/L Anion Gap mmol/L BUN (9-20) mg/dL Creatinine (0.66-1.25) mg/dL Est GFR (CKD-EPI)AfAm (>60 ml/min/1.73 sqM) Est GFR (CKD-EPI)NonAf (>60 ml/min/1.73 sqM) Glucose (74-99) mg/dL Calcium (8.4-10.2) mg/dL Magnesium (1.6-2.3) mg/dL Total Bilirubin (0.2-1.3) mg/dL AST (17-59) U/L ALT (4-49) U/L Alkaline Phosphatase (38-126) U/L Troponin I <0.012 (0.000-0.034) ng/mL Total Protein (6.3-8.2) g/dL Albumin (3.5-5.0) g/dL Disposition Clinical Impression: Palpitations Disposition: HOME SELF-CARE Condition: Good Instructions (If sedation given, give patient instructions): Heart Palpitations (ED) Additional Instructions: Continue taking your previously prescribed medications. Follow up with your metal hanger this week. Return to the emergency room with any new or concerning symptoms. Is patient prescribed a controlled substance at d/c from ED?: No Referrals: Tommy Sharma MD [Primary Care Provider] - 1-2 days Tanner Foley MD [Family Provider] - 1-2 days Time of Disposition: 08:40
[2022-09-21 07:42] LABS: Basophils % (A) 0 %; Eosinophils # (A) 0.2 k/uL (0-0.7); Eosinophils % (A) 3 %; HCT 45.8 % (39.0-53.0); HGB 15.6 gm/dL (13.0-17.5); Lymphocytes # (A) 1.8 k/uL (1.0-4.8); Lymphocytes % (A) 21 %; MCH 29.5 pg (25.0-35.0); MCV 86.8 fL (80.0-100.0); Mean Platelet Volume 8.2; Monocytes # (A) 0.5 k/uL (0-1.0); Monocytes % (A) 6 %; Neutrophils % (A) 69 %; Platelet Count 229 k/uL (150-450); RBC 5.27 m/uL (4.30-5.90); RDW 13.3 % (11.5-15.5); WBC 8.7 k/uL (3.8-10.6)
[2022-09-21 07:45] VITALS: RESP 18
[2022-09-21 07:56] LABS: Partial Thromboplastin Time 27.3 sec (22.0-30.0); Prothrombin Time 10.2 sec (9.0-12.0)
--- NOTE | 2022-09-21 07:58 | XR ---
EXAMINATION TYPE: XR chest 2V DATE OF EXAM: 09/21/2022 COMPARISON: NONE HISTORY: Chest pain TECHNIQUE: Frontal and lateral views of the chest are obtained. FINDINGS: There is no focal air space opacity. No evidence for pneumothorax. No pleural effusion. The cardiac silhouette size is within normal limits. The osseous structures are grossly intact. IMPRESSION: 1. No acute cardiopulmonary process.
[2022-09-21 08:03] LABS: ALT 28 U/L (4-49); AST 26 U/L (17-59); African American GFR (CKD) >90 (>60 ml/min/1.73 sqM); Albumin 4.7 g/dL (3.5-5.0); Alkaline Phosphatase 86 U/L (38-126); Anion Gap 11 mmol/L; Blood Urea Nitrogen 15 mg/dL (9-20); Calcium 9.6 mg/dL (8.4-10.2); Carbon Dioxide 26 mmol/L (22-30); Chloride 104 mmol/L (98-107); Glucose 100 mg/dL (74-99); Magnesium 2.2 mg/dL (1.6-2.3); Non-African American GFR(CKD) >90 (>60 ml/min/1.73 sqM); Potassium 3.9 mmol/L (3.5-5.1); Sodium 141 mmol/L (137-145); Total Bilirubin 0.7 mg/dL (0.2-1.3); Total Protein 8.1 g/dL (6.3-8.2)
[2022-09-21 08:59] VITALS: BP 128/68; PULSE 69
== END 2022-09-21 08:55 | disposition home or self-care (01) ==
LOC: EC 07:01
DX: R00.2 Palpitations (principal); E11.9 Type 2 diabetes mellitus without complications; I10 Essential (primary) hypertension; I25.2 Old myocardial infarction; E78.5 Hyperlipidemia, unspecified; F17.200 Nicotine dependence, unspecified, uncomplicated; F12.90 Cannabis use, unspecified, uncomplicated; Z79.02 Long term (current) use of antithrombotics/antiplatelets; Z79.82 Long term (current) use of aspirin; Z79.899 Other long term (current) drug therapy; Z86.73 Personal history of transient ischemic attack (TIA), and cerebral infarction without residual deficits; Z88.7 Allergy status to serum and vaccine; Z91.030 Bee allergy status; Z95.5 Presence of coronary angioplasty implant and graft
CPT/HCPCS: 36415; 71046; 80053; 83735; 84484; 85025; 85610; 85730; 93005; 96360; 99285

== ENCOUNTER 2024-03-19 09:15 | Observation (INO) | payer BC, OTHER ==
[2024-03-19 09:25] VITALS: TEMP 98.1
--- NOTE | 2024-03-19 09:54 | ED ---
General Adult HPI - General Chief complaint: Chest Pain Stated complaint: Chest pressure Time Seen by Provider: 03/19/24 09:29 Source: patient, RN notes reviewed Mode of arrival: ambulatory Limitations: no limitations - History of Present Illness Initial comments: Patient is a 40-year-old male present to the emergency department with concerns with chest pressure. Onset of symptoms was a couple hours ago. Discomfort is 3 or 4/10. No radiation. Patient does have some associated sweating and nausea. No dyspnea. Patient does have a mild headache. Patient felt he did have some kidney discomfort earlier. Unclear if there is any fever. No cough. Patient does have history of similar symptoms a couple years ago requiring stent placement. - Related Data Home Medications Medication Instructions Recorded Confirmed Albuterol Sulfate [Proair Hfa] 1 - 2 puff INHALATION RT-Q6H PRN 04/21/22 09/21/22 Aspirin EC [Ecotrin Low Dose] 81 mg PO HS@199904/21/22 09/21/22 Clopidogrel [Plavix] 75 mg PO HS@199904/21/22 09/21/22 Nitroglycerin Sl Tabs [Nitrostat] 0.4 mg SL Q5M PRN 04/21/22 09/21/22 Losartan [Cozaar] 50 mg PO DAILY@39909/21/22 09/21/22 Metoprolol Tartrate [Lopressor] 25 mg PO BID@08,199909/21/22 09/21/22 Rosuvastatin [Crestor] 20 mg PO HS@199909/21/22 09/21/22 hydroCHLOROthiazide [Hydrodiuril] 12.5 mg PO DAILY@39909/21/22 09/21/22 Allergies Allergy/AdvReac Type Severity Reaction Status Date / Time bee venom protein (honey bee) Allergy Swelling Verified 03/19/24 09:27 at site of sting Tetanus Vaccines and Toxoid Allergy Anaphylaxis Verified 03/19/24 09:27 Review of Systems ROS Statement: Those systems with pertinent positive or pertinent negative responses have been documented in the HPI. ROS Other: All systems not noted in ROS Statement are negative. Constitutional: Denies: fever Eyes: Denies: eye pain ENT: Denies: ear pain Respiratory: Denies: cough, dyspnea Cardiovascular: Reports: as per HPI, chest pain Gastrointestinal: Reports: nausea. Denies: abdominal pain Genitourinary: Denies: dysuria Musculoskeletal: Reports: as per HPI Neurological: Reports: as per HPI. Denies: weakness Past Medical History Past Medical History: Diabetes Mellitus, Hypertension, Myocardial Infarction ([place]) Additional Past Medical History / Comment(s): TIA Last Myocardial Infarction Date:: n/a History of Any Multi-Drug Resistant Organisms: None Reported Past Surgical History: Appendectomy, Cholecystectomy Past Psychological History: Anxiety Smoking Status: Current every day smoker Past Alcohol Use History: Heavy Past Drug Use History: Marijuana General Exam Limitations: no limitations General appearance: alert, in no apparent distress Head exam: Present: atraumatic, normocephalic Eye exam: Present: normal appearance ENT exam: Present: normal oropharynx Neck exam: Present: normal inspection. Absent: tenderness Respiratory exam: Present: normal lung sounds bilaterally. Absent: chest wall tenderness Cardiovascular Exam: Present: regular rate, normal rhythm, normal heart sounds Expanded Peripheral pulses: 2+: Radial (R), Radial (L), Posterior Tibialis (R), Posterior Tibialis (L) GI/Abdominal exam: Present: soft. Absent: tenderness Extremities exam: Present: normal inspection. Absent: pedal edema, calf tenderness Neurological exam: Present: alert Psychiatric exam: Present: normal affect, normal mood Skin exam: Present: normal color Course Vital Signs 03/19/24 03/19/24 09:21 11:09 Temperature 98.1 F Pulse Rate 71 64 Respiratory 18 18 Rate Blood Pressure 171/105 120/76 O2 Sat by Pulse 99 96 Oximetry EKG Findings - EKG Results: EKG: interpreted by ERMD (t Wave inversion lead III), sinus rhythm, normal axis, normal QRS Medical Decision Making - Medical Decision Making Was pt. sent in by a medical professional or institution (, PA, CORE CLEANER, urgent care, hospital, or alf...) When possible be specific @ -No Did you speak to anyone other than the patient for history (EMS, parent, family, police, friend...)? What history was obtained from this source @ -No Did you review nursing and triage notes (agree or disagree)? Why? @ -I reviewed and agree with nursing and triage notes Were old charts reviewed (outside hosp., previous admission, EMS record, old EKG, old radiological studies, urgent care reports/EKG's, alf records)? Report findings @ -Unable to review previous EKGs secondary to computer issues Differential Diagnosis (chest pain, altered mental status, abdominal pain women, abdominal pain men, vaginal bleeding, weakness, fever, dyspnea, syncope, headache, dizziness, GI bleed, back pain, seizure, CVA, palpatations, mental health, musculoskeletal)? @ -Differential Chest Pain: Stable Angina, Unstable Angina, STEMI, NSTEMI Aortic Dissection, Pneumothorax, Musculoskeletal, Esophageal Spasm GERD, Cholecystitis, Pancreatitis, Zoster, this is not meant to be an all-inclusive list. EKG interpreted by me (3pts min.). @ -As above X-rays interpreted by me (1pt min.). @ -X-ray interpreted by myself does not reveal acute abnormality. CT interpreted by me (1pt min.). @ -None done U/S interpreted by me (1pt. min.). @ -None done What testing was considered but not performed or refused? (CT, X-rays, U/S, labs)? Why? @ -None What meds were considered but not given or refused? Why? @ -None Did you discuss the management of the patient with other professionals (professionals i.e. , PA, CORE CLEANER, lab, RT, psych nurse, community mental health social worker, computer operations technician, teacher, house officer, disability case manager)? Give summary @ -Case discussed with Dr. Brianda white who will admit covering Dr. Otero Was smoking cessation discussed for >3mins.? @ -No Was critical care preformed (if so, how long)? @ -No Were there social determinants of health that impacted care today? How? (Homelessness, low income, unemployed, alcoholism, drug addiction, transportation, low edu. Level, literacy, decrease access to med. care, long-term, rehab)? @ -No Was there de-escalation of care discussed even if they declined (Discuss DNR or withdrawal of care, Hospice)? DNR status @ -No What co-morbidities impacted this encounter? (DM, HTN, Smoking, COPD, CAD, Cancer, CVA, ARF, Chemo, Hep., AIDS, mental health diagnosis, sleep apnea, morbid obesity)? @ -cad Was patient admitted / discharged? Hospital course, mention meds given and route, prescriptions, significant lab abnormalities, going to OR and other pertinent info. @ -Patient presents with chest discomfort similar however not as severe to previous cardiac disease requiring stenting. First troponin negative. Patient reevaluated and updated. Patient symptom-free after 1 nitroglycerin. Patient will be admitted with cardiac consult. Ariel orders written. Undiagnosed new problem with uncertain prognosis? @ -No Drug Therapy requiring intensive monitoring for toxicity (Heparin, Nitro, Insulin, Cardizem)? @ -No Were any procedures done? @ -No Diagnosis/symptom? @ -Chest pain Acute, or Chronic, or Acute on Chronic? @ -Acute Uncomplicated (without systemic symptoms) or Complicated (systemic symptoms)? @ -Default Side effects of treatment? @ -No Exacerbation, Progression, or Severe Exacerbation? @ -No Poses a threat to life or bodily function? How? (Chest pain, [place], [place], pneumonia, PE, COPD, DKA, ARF, appy, cholecystitis, CVA, Diverticulitis, Homicidal, Suicidal, threat to staff... and all critical care pts) @ -Threat to cardiac function - Lab Data Result diagrams: 03/19/24 10:04 03/19/24 10:04 Lab Results 03/19/24 03/19/24 03/19/24 Range/Units 10:04 10:04 10:04 WBC 8.8 (3.8-10.6) k/uL RBC 5.53 (4.30-5.90) m/uL Hgb 16.5 (13.0-17.5) gm/dL Hct 48.8 (39.0-53.0) % MCV 88.2 (80.0-100.0) fL MCH 29.9 (25.0-35.0) pg MCHC 33.9 (31.0-37.0) g/dL RDW 14.1 (11.5-15.5) % Plt Count 231 (150-450) k/uL MPV 8.1 Neutrophils % 73 % Lymphocytes % 17 % Monocytes % 7 % Eosinophils % 2 % Basophils % 1 % Neutrophils # 6.4 (1.3-7.7) k/uL Lymphocytes # 1.4 (1.0-4.8) k/uL Monocytes # 0.6 (0-1.0) k/uL Eosinophils # 0.2 (0-0.7) k/uL Basophils # 0.0 (0-0.2) k/uL PT 10.2 (10.0-12.5) sec INR 0.9 (<1.2) APTT 28.3 (22.0-30.0) sec Sodium 139 (137-145) mmol/L Potassium 4.3 (3.5-5.1) mmol/L Chloride 105 (98-107) mmol/L Carbon Dioxide 25 (22-30) mmol/L Anion Gap 9 mmol/L BUN 15 (9-20) mg/dL Creatinine 0.63 L (0.66-1.25) mg/dL Est GFR (CKD-EPI)AfAm >90 (>60 ml/min/1.73 sqM) Est GFR (CKD-EPI)NonAf >90 (>60 ml/min/1.73 sqM) Glucose 110 H (74-99) mg/dL Calcium 9.6 (8.4-10.2) mg/dL Magnesium 1.9 (1.6-2.3) mg/dL Total Bilirubin 0.6 (0.2-1.3) mg/dL AST 27 (17-59) U/L ALT 28 (4-49) U/L Alkaline Phosphatase 75 (38-126) U/L Troponin I (0.000-0.034) ng/mL Total Protein 7.9 (6.3-8.2) g/dL Albumin 4.5 (3.5-5.0) g/dL 03/19/24 Range/Units 10:04 WBC (3.8-10.6) k/uL RBC (4.30-5.90) m/uL Hgb (13.0-17.5) gm/dL Hct (39.0-53.0) % MCV (80.0-100.0) fL MCH (25.0-35.0) pg MCHC (31.0-37.0) g/dL RDW (11.5-15.5) % Plt Count (150-450) k/uL MPV Neutrophils % % Lymphocytes % % Monocytes % % Eosinophils % % Basophils % % Neutrophils # (1.3-7.7) k/uL Lymphocytes # (1.0-4.8) k/uL Monocytes # (0-1.0) k/uL Eosinophils # (0-0.7) k/uL Basophils # (0-0.2) k/uL PT (10.0-12.5) sec INR (<1.2) APTT (22.0-30.0) sec Sodium (137-145) mmol/L Potassium (3.5-5.1) mmol/L Chloride (98-107) mmol/L Carbon Dioxide (22-30) mmol/L Anion Gap mmol/L BUN (9-20) mg/dL Creatinine (0.66-1.25) mg/dL Est GFR (CKD-EPI)AfAm (>60 ml/min/1.73 sqM) Est GFR (CKD-EPI)NonAf (>60 ml/min/1.73 sqM) Glucose (74-99) mg/dL Calcium (8.4-10.2) mg/dL Magnesium (1.6-2.3) mg/dL Total Bilirubin (0.2-1.3) mg/dL AST (17-59) U/L ALT (4-49) U/L Alkaline Phosphatase (38-126) U/L Troponin I <0.012 (0.000-0.034) ng/mL Total Protein (6.3-8.2) g/dL Albumin (3.5-5.0) g/dL Disposition Clinical Impression: Chest pain Disposition: ADMITTED IP TO THIS HOSP Is patient prescribed a controlled substance at d/c from ED?: No Referrals: Tommy Sharma MD [Primary Care Provider] - 1-2 days Time of Disposition: 11:24
[2024-03-19] MEDS: ASPIRIN 81 MG PO STA (10:06)
[2024-03-19] MEDS: ACETAMINOPHEN TAB 500 MG TAB PO STA (10:07)
[2024-03-19] MEDS: NITROGLYCERIN SL TABS 0.4 MG TAB SUBLINGUAL STA ×3 (10:09→11:30)
[2024-03-19 10:18] LABS: Basophils % (A) 1 %; Eosinophils # (A) 0.2 k/uL (0-0.7); Eosinophils % (A) 2 %; HCT 48.8 % (39.0-53.0); HGB 16.5 gm/dL (13.0-17.5); Lymphocytes # (A) 1.4 k/uL (1.0-4.8); Lymphocytes % (A) 17 %; MCH 29.9 pg (25.0-35.0); MCHC 33.9 g/dL (31.0-37.0); MCV 88.2 fL (80.0-100.0); Mean Platelet Volume 8.1; Monocytes # (A) 0.6 k/uL (0-1.0); Monocytes % (A) 7 %; Neutrophils # (A) 6.4 k/uL (1.3-7.7); Neutrophils % (A) 73 %; Platelet Count 231 k/uL (150-450); RBC 5.53 m/uL (4.30-5.90); RDW 14.1 % (11.5-15.5); WBC 8.8 k/uL (3.8-10.6)
[2024-03-19 10:26] LABS: ALT 28 U/L (4-49); AST 27 U/L (17-59); African American GFR (CKD) >90 (>60 ml/min/1.73 sqM); Albumin 4.5 g/dL (3.5-5.0); Alkaline Phosphatase 75 U/L (38-126); Anion Gap 9 mmol/L; Blood Urea Nitrogen 15 mg/dL (9-20); Calcium 9.6 mg/dL (8.4-10.2); Carbon Dioxide 25 mmol/L (22-30); Chloride 105 mmol/L (98-107); Glucose 110 mg/dL (74-99); Magnesium 1.9 mg/dL (1.6-2.3); Non-African American GFR(CKD) >90 (>60 ml/min/1.73 sqM); Potassium 4.3 mmol/L (3.5-5.1); Sodium 139 mmol/L (137-145); Total Bilirubin 0.6 mg/dL (0.2-1.3); Total Protein 7.9 g/dL (6.3-8.2)
[2024-03-19 10:32] LABS: INR 0.9 (<1.2); Partial Thromboplastin Time 28.3 sec (22.0-30.0); Prothrombin Time 10.2 sec (10.0-12.5)
[2024-03-19] MEDS ORDERED: NITROGLYCERIN SL TABS 0.4 MG TAB SUBLINGUAL PRN (11:24)
--- NOTE | 2024-03-19 11:48 | XR ---
EXAMINATION TYPE: XR chest 2V DATE OF EXAM: 03/19/2024 COMPARISON: 09/21/2022 INDICATION: Chest pain chest pressure TECHNIQUE: Frontal and lateral views of the chest are obtained. FINDINGS: The heart size is normal. The pulmonary vasculature is normal. The lungs are clear. IMPRESSION: 1. No acute pulmonary process. [facility], , 03/19/2024 11:45 AM
[2024-03-19] MEDS ORDERED: NITROGLYCERIN OINT 1 INCH/GM PACKET TOPICAL SCH (12:00)
[2024-03-19 12:11] VITALS: BP 129/71
[2024-03-19 12:41] VITALS: PULSE 70; RESP 18
--- NOTE | 2024-03-19 14:55 | P.HPIM ---
History of Present Illness H&P Date: 03/19/24 History of present illness: 48-year-old male patient with past medical history significant for coronary artery disease status post stent in 2021, history of hypertension, noncompliant with medication who presented with chest pain for 1 day. Patient stated that he woke up and started to have chest pain, which was intermittent, was nonradiating, was associated with sweating and nausea but denied any shortness of breath, also complained of mild headache, reported that his blood pressure was high at home. Patient reported that he currently takes Plavix only, has not taken aspirin for about a year, reported that he was taking metoprolol in the past, stopped taking that, also reported not being on any other medications, patient was unable to provide any specific reason for not taking his medica tions. Patient reported that he lost his weight, his blood pressure was controlled, did not like the statin due to side effects and his grandmother. Patient's stated that he thought that he was having kidney discomfort. In the ED patient was afebrile, heart rate 71, respiratory rate 18, blood pres sure was elevated 171/105, was saturating 99% on room air. CBC EKG showed sinus rhythm, possible left atrial enlargement, moderate intraventricular conduction delay was unremarkable. INR was normal. BMP was also unremarkable. Troponin was negative.. REVIEW OF SYSTEMS: CONSTITUTIONAL: No fever, no malaise, no fatigue. HEENT: No recent visual problems or hearing problems. Denied any sore throat. CARDIOVASCULAR: No chest pain, orthopnea, PND, no palpitations, no syncope. PULMONARY: No shortness of breath, no cough, no hemoptysis. GASTROINTESTINAL: No diarrhea, no nausea, no vomiting, no abdominal pain. NEUROLOGICAL: No headaches, no weakness, no numbness. HEMATOLOGICAL: Denies any bleeding or petechiae. GENITOURINARY: Denies any burning micturition, frequency, or urgency. MUSCULOSKELETAL/RHEUMATOLOGICAL: Denies any joint pain, swelling, or any muscle pain. ENDOCRINE: Denies any polyuria or polydipsia. The rest of the 14-point review of systems is negative. PHYSICAL EXAMINATION: GENERAL: The patient is A&O x3, NAD HEENT: EOMI, Sclerae anicteric, Moist Mucous membranes Neck: Supple, Non tender, No JVD PULMONARY: Equal breath souds B/L, No wheezing, No crackles. CARDIOVASCULAR: S1, S2 present. No murmurs, rubs, or gallops. ABDOMEN: Soft, nontender, nondistended, normoactive bowel sounds. No guarding or rebound tenderness. MUSCULOSKELETAL: No edema, No cyanosis. No clubbing. Normal ROM. Intact peripheral pulses. EXTREMITIES: No cyanosis, clubbing, or pedal edema. NEUROLOGICAL: CN 2-12 grossly intact. No FND Assessment and plan: Chest pain: History of CAD/PCI: Hypertension: Presented with chest pain, has history of coronary artery disease and stent placement in 2021. Initial troponin is negative. EKG without any acute changes. Cardiology consulted. Monitor vital signs and labs Labs and medication were reviewed. Continue same treatment. Further recommendations as per clinical course of the patient Dictation was produced using [employer] dictation software. please excuse any grammatical, word or spelling errors. Past Medical History Past Medical History: Diabetes Mellitus, Hypertension, Myocardial Infarction ([place]) Additional Past Medical History / Comment(s): TIA Last Myocardial Infarction Date:: n/a History of Any Multi-Drug Resistant Organisms: None Reported Past Surgical History: Appendectomy, Cholecystectomy Past Psychological History: Anxiety Smoking Status: Current every day smoker Past Alcohol Use History: Heavy Past Drug Use History: Marijuana Medications and Allergies Home Medications Medication Instructions Recorded Confirmed Type Clopidogrel [Plavix] 75 mg PO DAILY 04/21/22 03/19/24 History Metoprolol Succinate (ER) [Toprol 25 mg PO DAILY 03/19/24 03/19/24 History Xl] Allergies Allergy/AdvReac Type Severity Reaction Status Date / Time bee venom protein (honey bee) Allergy Swelling Verified 03/19/24 11:52 at site of sting Tetanus Vaccines and Toxoid Allergy Anaphylaxis Verified 03/19/24 11:52 Physical Exam Vitals: Vital Signs Temp Pulse Resp BP Pulse Ox 03/19/24 12:38 70 18 129/71 98 03/19/24 12:10 76 20 129/71 96 03/19/24 11:09 64 18 120/76 96 03/19/24 09:21 98.1 F 71 18 171/105 99 Intake and Output 03/18/24 03/19/24 03/19/24 22:59 06:59 14:59 Other: Weight 113.398 kg Results CBC & Chem 7: 03/19/24 10:04 03/19/24 10:04 Labs: Abnormal Lab Results - Last 24 Hours (Table) 03/19/24 Range/Units 10:04 Creatinine 0.63 L (0.66-1.25) mg/dL Glucose 110 H (74-99) mg/dL
--- NOTE | 2024-03-19 14:56 | P.DS ---
Providers Date of admission: 03/19/24 11:25 Expected date of discharge: 03/19/24 Attending physician: Miquel Reese MD Consults: 03/19/24 11:25 Consult Physician Urgent Consulting Provider: Ham Ken Consult Reason/Comments: cp Do you want consulting provider notified?: Yes Primary care physician: Tommy Sharma MD Hospital Course: Discharge diagnoses: Chest pain: History of CAD/stents: Hypertension: Presented with chest pain, initial troponin negative. Patient left AMA from the ED Hospital course: 48-year-old male patient with past medical history significant for coronary artery disease status post stent in 2021, history of hypertension, noncompliant with medication who presented with chest pain for 1 day. Patient stated that he woke up and started to have chest pain, which was intermittent, was nonradiating, was associated with sweating and nausea but denied any shortness of breath, also complained of mild headache, reported that his blood pressure was high at home. Patient reported that he currently takes Plavix only, has not taken aspirin for about a year, reported that he was taking metoprolol in the past, stopped taking that, also reported not being on any other medications, patient was unable to provide any specific reason for not taking his medications. Patient reported that he lost his weight, his blood pressure was controlled, did not like the statin due to side effects and his grandmother. Patient's stated that he thought that he was having kidney discomfort. In the ED patient was afebrile, heart rate 71, respiratory rate 18, blood pressure was elevated 171/105, was saturating 99% on room air. CBC EKG showed sinus rhythm, possible left atrial enlargement, moderate intraventricular conduction delay was unremarkable. INR was normal. BMP was also unremarkable. Troponin was negative. Cardiology consulted. Patient left AMA from ED. Risk involved in leaving AMA including worsening chest pain, myocardial infarction, even explained to the patient. Patient verbalized understanding, decided to leave AMA. Patient alert and oriented x 4, has capacity to make medical decisions. PHYSICAL EXAMINATION: GENERAL: The patient is A&O x3, NAD HEENT: EOMI, Sclerae anicteric, Moist Mucous membranes Neck: Supple, Non tender, No JVD PULMONARY: Equal breath souds B/L, No wheezing, No crackles. CARDIOVASCULAR: S1, S2 present. No murmurs, rubs, or gallops. ABDOMEN: Soft, nontender, nondistended, normoactive bowel sounds. No guarding or rebound tenderness. MUSCULOSKELETAL: No edema, No cyanosis. No clubbing. Normal ROM. Intact peripheral pulses. EXTREMITIES: No cyanosis, clubbing, or pedal edema. NEUROLOGICAL: CN 2-12 grossly intact. No FND SKIN: No rashes. Dictation was produced using [employer] dictation software. please excuse any grammatical, word or spelling errors. Plan - Discharge Summary New Discharge Prescriptions: No Action Clopidogrel [Plavix] 75 mg PO DAILY Metoprolol Succinate (ER) [Toprol Xl] 25 mg PO DAILY Discharge Medication List Clopidogrel [Plavix] 75 mg PO DAILY 04/21/22 [History] Metoprolol Succinate (ER) [Toprol Xl] 25 mg PO DAILY 03/19/24 [History] Follow up Appointment(s)/Referral(s): Tommy Sharma MD [Primary Care Provider] - 1-2 days Discharge Disposition: LEFT AGAINST MEDICAL ADVICE
[2024-03-20] MEDS ORDERED: ASPIRIN 325 MG TAB PO SCH (09:00)
== END 2024-03-19 12:40 | disposition left against medical advice (07) ==
LOC: EC 09:15 → 6NMEDSUR 11:25
PROVIDERS: ADMIT Internal Medicine; ATTEND Internal Medicine
DX: R07.89 Other chest pain (principal); I10 Essential (primary) hypertension; I25.10 Atherosclerotic heart disease of native coronary artery without angina pectoris; T44.7X6A Underdosing of beta-adrenoreceptor antagonists, initial encounter; T39.016A Underdosing of aspirin, initial encounter; Z91.128 Patient's intentional underdosing of medication regimen for other reason; R11.0 Nausea; R61 Generalized hyperhidrosis; R51.9 Headache, unspecified; F17.200 Nicotine dependence, unspecified, uncomplicated; Z91.148 Patient's other noncompliance with medication regimen for other reason; Z79.82 Long term (current) use of aspirin; Z79.02 Long term (current) use of antithrombotics/antiplatelets; Z79.899 Other long term (current) drug therapy; Z88.7 Allergy status to serum and vaccine; Z91.030 Bee allergy status; Z95.5 Presence of coronary angioplasty implant and graft; Z53.29 Procedure and treatment not carried out because of patient's decision for other reasons
CPT/HCPCS: 36415; 71046; 80053; 83735; 84484; 85025; 85610; 85730; 93005; 99285

== ENCOUNTER → 2024-12-26 | Outpatient (CLI) | payer OTHER ==
--- NOTE | 2024-12-26 13:53 | XR ---
EXAMINATION TYPE: XR lumbar spine 2 or 3V DATE OF EXAM: 12/26/2024 CLINICAL HISTORY: pain TECHNIQUE: Three views of the lumbar spine are submitted. COMPARISON: None. FINDINGS: There are 5 lumbar type vertebral bodies identified. The lumbar spine shows satisfactory alignment w ithout evidence of acute fracture or dislocation. Vertebral body heights are within normal limits. Multilevel disc space narrowing with endplate sclerosis and anterior osteophytosis. Multilevel facet arthropathy. The overlying soft tissue appears unremarkable. Cholecystectomy clips in the right uppe r quadrant. IMPRESSION: 1. No acute fracture or dislocation is seen in the lumbar spine. 2. Mild multilevel degenerative disc disease and facet arthropathy of the lumbar spine. [facility], , 12/26/2024 1:51 PM
== END | disposition home or self-care (01) ==
LOC: RADXRMAIN 13:24
PROVIDERS: ATTEND Family Medicine
DX: M51.360 Other intervertebral disc degeneration, lumbar region with discogenic back pain only (principal); M47.816 Spondylosis without myelopathy or radiculopathy, lumbar region
CPT/HCPCS: 72100